=== PATIENT | male | born 1930 | race Caucasian/White ===

== ENCOUNTER → 2016-08-30 | Outpatient (CLI) | payer MEDICARE | END | disposition home or self-care (01) | LOC: MW.CHRC 15:37 | PROVIDERS: ATTEND Family Medicine | DX: E03.9 Hypothyroidism, unspecified (principal); E11.9 Type 2 diabetes mellitus without complications; I10 Essential (primary) hypertension; M15.9 Polyosteoarthritis, unspecified | CPT/HCPCS: 36415; 80053; 83036; 84439; 84443; 85025; G0463 ==

== ENCOUNTER 2017-11-21 22:21 | Emergency (ER) | payer MEDICARE ==
[2017-11-21 22:47] VITALS: BP 138/65
--- NOTE | 2017-11-22 00:11 | EDM.PDOC ---
ED HPI GENERAL MEDICAL PROBLEM - General Chief Complaint: ENT Problem Stated Complaint: TROUBLE WITH EYES Time Seen by Provider: 11/21/17 22:22 Source of Information: Reports: Patient, Family History Limitations: Reports: No Limitations - History of Present Illness INITIAL COMMENTS - FREE TEXT/NARRATIVE: HISTORY AND PHYSICAL: History of present illness: 87-year-old male presenting to the emergency department with family for chief complaint of acute right vision loss with past medical history of macular degeneration and dementia. As per son he states that his father was complaining of some blurry vision yesterday which progressed to the point where his was not able to see out of his right eye. He has been no associated pain. Does have a history of macular degeneration. Son states that the psychology clinician told him to come to the emergency department if he had any sudden vision loss and that is the primary reason why they came today. Patient denies any headache, jaw claudication, fever , scalp tenderness. I did talk to Dr. Anthony data collection interviewer psychology clinician and reviewed the patient with him. He suspected that secondary to no pain or significant pupil changes this was not a emergency situation and that they could follow-up with him on morning at [address]. I did talk to the the patient and his son about this. When I return to get intraocular pressures the patient and son had eloped. Review of systems: As per history of present illness and below otherwise all systems reviewed and negative. Past medical history: As per history of present illness and as reviewed below otherwise noncontributory. Surgical history: As per history of present illness and as reviewed below otherwise noncontributory. Social history: No reported history of drug or alcohol abuse. Family history: As per history of present illness and as reviewed below otherwise noncontributory. Physical exam: HEENT: Atraumatic, normocephalic, pupils reactive, negative for conjunctival pallor or scleral icterus, mucous membranes moist, throat clear, neck supple, nontender, trachea midline. Lungs: Clear to auscultation, breath sounds equal bilaterally, chest nontender. Heart: S1S2, regular, negative for clicks, rubs, or JVD. Abdomen: Soft, nondistended, nontender. Negative for masses or hepatosplenomegaly. Negative for costovertebral tenderness. Pelvis: Stable nontender. Genitourinary: Deferred. Rectal: Deferred. Extremities: Atraumatic, negative for cords or calf pain. Neurovascular unremarkable. Neuro: Awake, alert, oriented. Cranial nerves II through XII unremarkable. Cerebellum unremarkable. Motor and sensory unremarkable throughout. Exam nonfocal. Diagnostics: [] Therapeutics: [] Impression: Acute vision loss Plan: As above the patient eloped before I could get any further assessment. Please see H&P. Definitive disposition and diagnosis as appropriate pending reevaluation and review of above. - Related Data Allergies Allergy/AdvReac Type Severity Reaction Status Date / Time pneumococcal vaccine Allergy Other Verified 11/21/17 22:51 Home Meds: Home Meds Cholecalciferol (Vitamin D3) [Vitamin D] 2,000 units PO DAILY 03/21/16 [History] Donepezil HCl 10 mg PO BEDTIME 03/21/16 [History] Fluticasone Propionate [Flovent] 1 spray NASBOTH DAILY 03/21/16 [History] Levothyroxine Sodium [Synthroid] 175 mcg PO DAILY 03/21/16 [History] NIFEdipine [Nifedipine ER] 30 mg PO DAILY 03/21/16 [History] Sertraline HCl 100 mg PO BEDTIME 03/21/16 [History] glipiZIDE [Glipizide ER] 2.5 mg PO DAILY 03/21/16 [History] predniSONE 10 mg PO ASDIRECTED 03/21/16 [History] Acetaminophen 650 mg PO Q4HR PRN 11/21/17 [History] Acetaminophen with Codeine [Tylenol with Codeine #3 Tablet] 0 mg PO TID PRN 08/06 [History] Albuterol [Ventolin HFA] 2 puff INH Q4HR PRN 11/21/17 [History] Cholecalciferol (Vitamin D3) [Vitamin D] 2,000 unit PO DAILY 11/21/17 [History] Diphenoxylate HCl/Atropine [Lomotil] 0.025 - 2.5 mg PO TID PRN 11/21/17 [History ] Diphenoxylate HCl/Atropine [Lomotil] 1 tab PO Q6H PRN 11/21/17 [History] Ferrous Sulfate 325 mg PO TID 11/21/17 [History] Lactase 0 unit PO ASDIRECTED 11/21/17 [History] Lidocaine 4% [Xylocaine 4% Top Soln] 50 ml TOP ASDIRECTED 11/21/17 [History] Memantine [Namenda] 5 mg PO BID 11/21/17 [History] Pantoprazole Sodium [Protonix] 20 mg PO ASDIRECTED 11/21/17 [History] Vit A/Vit C/Vit E/Zinc/Copper [Preservision] 0 mg PO DAILY 11/21/17 [History] Past Medical History HEENT History: Reports: Hard of Hearing, Macular Degeneration Other HEENT History: chronic Rhinitis Cardiovascular History: Reports: Hypertension Respiratory History: Reports: COPD, Other (See Below) Other Respiratory History: Emphysema Other Gastrointestinal History: hx ulcer, abnormal weight loss, personal history of diseases of digestive system, unspecified abdominal pain, diarrhea Genitourinary History: Reports: None Other Genitourinary History: UTI Musculoskeletal History: Reports: Osteoarthritis, Other (See Below) Other Musculoskeletal History: pain to left knee Neurological History: Reports: Alzheimers Disease Other Neuro History: Amnesia, mild cognitive impairment, personal history of diseases of the nervous system and sense organs, dementia without behavioral disturbance Psychiatric History: Reports: Depression Endocrine/Metabolic History: Reports: Diabetes, Type II, Hypothyroidism, Other ( See Below) Other Endocrine/Metabolic History: Endocrine, nutritional and metabolic disease Hematologic History: Reports: Anemia Immunologic History: Reports: None Oncologic (Cancer) History: Reports: None Dermatologic History: Reports: Other (See Below) Other Dermatologic History: ganglion, right wrist - Past Surgical History Head Surgeries/Procedures: Reports: None HEENT Surgical History: Reports: Cataract Surgery Cardiovascular Surgical History: Reports: None Respiratory Surgical History: Reports: None Other GI Surgeries/Procedures: hx of surgery for ulcer, (procedure was done 50 yrs ago. son is not sure what was done) Male Surgical History: Reports: None Endocrine Surgical History: Reports: None Neurological Surgical History: Reports: None Musculoskeletal Surgical History: Reports: None Dermatological Surgical History: Reports: None Social & Family History - Family History Family Medical History: Noncontributory - Tobacco Use Smoking Status *Q: Former Smoker Used Tobacco, but Quit: Yes Month/Year Tobacco Last Used: "45years ago" - Caffeine Use Caffeine Use: Reports: None - Recreational Drug Use Recreational Drug Use: No ED ROS GENERAL - Review of Systems Review Of Systems: ROS reveals no pertinent complaints other than HPI. ED EXAM, GENERAL - Physical Exam Exam: See Below Course - Vital Signs Last Recorded V/S: Last Vital Signs Temp 97.6 F 11/21/17 22:37 Pulse 61 11/21/17 22:37 Resp 22 H 11/21/17 22:37 BP 138/65 11/21/17 22:37 Pulse Ox 96 11/21/17 22:37 Departure - Departure Time of Disposition: 00:11 Disposition: Eloped 07 Condition: Undetermined Clinical Impression: Acute loss of vision Qualifiers: Laterality: right Qualified Code(s): H53.131 - Sudden visual loss, right eye - Discharge Information Referrals: PCP,None [Primary Care Provider] -
== END 2017-11-22 00:10 | disposition left against medical advice (07) ==
LOC: MW.ED 22:21
DX: H53.131 Sudden visual loss, right eye (principal); I10 Essential (primary) hypertension; E11.9 Type 2 diabetes mellitus without complications; G30.9 Alzheimer's disease, unspecified; F02.80 Dementia in other diseases classified elsewhere, unspecified severity, without behavioral disturbance, psychotic disturbance, mood disturbance, and anxiety; J44.9 Chronic obstructive pulmonary disease, unspecified; E03.9 Hypothyroidism, unspecified; F32.9 Major depressive disorder, single episode, unspecified; D64.9 Anemia, unspecified; Z79.84 Long term (current) use of oral hypoglycemic drugs; Z87.891 Personal history of nicotine dependence; Z88.7 Allergy status to serum and vaccine; Z79.899 Other long term (current) drug therapy
CPT/HCPCS: 99283

== ENCOUNTER 2018-10-22 11:43 | Inpatient (IN) | payer MEDICARE, MEDICAID ==
[2018-10-22] MEDS ORDERED: LORazepam 2 MG/ML SDV IM ONE (11:52)
--- NOTE | 2018-10-22 12:42 | CT ---
INDICATION: Fall. Patient on blood thinners. TECHNIQUE: Head CT without contrast. COMPARISON: None FINDINGS: CSF spaces: Within normal limits for age. Brain parenchyma: There are nonspecific low attenuation white matter changes consistent with chronic microvascular disease. No sign of mass, hemorrhage, or midline shift. Skull base and calvarium: Bony thickening of the margins of the right maxillary sinus with chronic appearing mild mucosal thickening. The visualized paranasal sinuses and mastoid air cells are otherwise clear. The visualized orbits are grossly unremarkable. No skull fractures. There is intracranial atherosclerosis. IMPRESSION: 1. No acute findings. 2. Nonspecific white matter disease, typical of chronic microvascular disease. 3. Chronic sinusitis changes right maxillary sinus. Please note that all CT scans at this facility use dose modulation, iterative reconstruction, and/or weight-based dosing when appropriate to reduce radiation dose to as low as reasonably achievable. Dictated by Umang Montoya MD @ Oct 22 2018 12:39PM Signed by Dr. Umang Montoya @ Oct 22 2018 12:40PM
--- NOTE | 2018-10-22 12:44 | CT ---
INDICATION: Fall. TECHNIQUE: Multidetector imaging posture fossa to thoracic inlet. FINDINGS: Anatomic alignment. Mild degenerative disc disease C5-6 and C6-C7 as well as at C7-T1. Moderately severe facet arthrosis through the mid cervical spine more prominent on the right C3-4 through CE 5 6. No acute fracture or significant bone lesion. No neural foraminal or central canal bony encroachment of significance. IMPRESSION: No acute fracture or traumatic malalignment. Moderate degenerative joint disease and mild degenerative disc disease. Please note that all CT scans at this facility use dose modulation, iterative reconstruction, and/or weight-based dosing when appropriate to reduce radiation dose to as low as reasonably achievable. Dictated by Umang Montoya MD @ Oct 22 2018 12:40PM Signed by Dr. Umang Montoya @ Oct 22 2018 12:42PM
--- NOTE | 2018-10-22 12:48 | EDM.PDOC ---
ED HPI GENERAL MEDICAL PROBLEM - General Chief Complaint: Trauma Stated Complaint: FEVER Time Seen by Provider: 10/22/18 11:47 Source of Information: Reports: [facility] Records History Limitations: Reports: No Limitations, Other (End stage dementia) - History of Present Illness INITIAL COMMENTS - FREE TEXT/NARRATIVE: HISTORY AND PHYSICAL: History of present illness: Patient is an 88-year-old male, with history of end-stage dementia, presents to the ED today from [facility] for concern of hypoxia and fever. Per nursing staff, this morning patient was found with a recliner flipped and on the ground. The nursing staff had performed routinely vital signs and saw that patient had a fever 102. They're given him Tylenol and upon second vital check he goes oxygenation around 80% with a fever. They immediately transported him to the ER. In the ER, patient not able to answer questions or concerns due to underlying chronic dementia. Patient does take a daily aspirin. Patient denies fever, chills, chest pain, shortness of breath, or cough. Denies headache, neck stiff ness, change in vision, syncope, or near syncope. Denies nausea, vomiting, abdominal pain, diarrhea, constipation, or dysuria. Has not noted any blood in urine or stool. Patient has been eating and drinking appropriately. Review of systems: As per history of present illness and below otherwise all systems reviewed and negative. Past medical history: As per history of present illness and as reviewed below otherwise noncontributory. Surgical history: As per history of present illness and as reviewed below otherwise noncontributory. Social history: See social history for further information Family history: As per history of present illness and as reviewed below otherwise noncontributory. Physical exam: Exam is limited due to patient's underlying dementia. General: Patient is alert, and in no acute distress. Patient laying comfortably on exam table but combative with staff, noted to be combative per his baseline. HEENT: Atraumatic, normocephalic, pupils equal and reactive bilaterally, negative for conjunctival pallor or scleral icterus, mucous membranes moist, TMs normal bilaterally, throat clear, neck supple, nontender, trachea midline. No drooling or trismus noted. No meningeal signs. No hot potato voice noted. Lungs: Diffuse bilateral coarse crackles to auscultation, breath sounds equal bilaterally, chest nontender. Heart: S1S2, regular rate and rhythm without overt murmur Abdomen: Soft, nondistended, nontender. Negative for masses or hepatosplenomegaly. Negative for costovertebral tenderness. Pelvis: Stable nontender. Genitourinary: Deferred. Rectal: Deferred. Skin: Intact, warm, dry. No lesions or rashes noted. Extremities: Atraumatic, negative for cords or calf pain. Neurovascular unremarkable. No obvious deformities, step-offs, or crepitus of the complete spine. Neuro: Awake, alert. Exam nonfocal. Notes: Trauma alert was called upon arrival to the ED. Dr. Jarrell directly involved in patient care. 78% on room air. Patient not able to tolerate nasal cannula. Placed on blow-by oxygen and stating 90%. EKG does show LBB but this was also seen on EKG from 2016. Repeat EKG no change. Elevated troponin, discussed this with patient's power of finance attorney, his son, who did physically present to the ED. Son would desire admission to our hospital and not be transferred at this time. Patient is a DNR, code level 3. Dr. Kelsey was contacted on patient and will admit to observation. Diagnostics: CBC, CMP, INR, troponin, EKG, UA, chest x-ray, pelvic x-ray, head CT, cervical spine CT, BNP Therapeutics: kirill Hines Impression: Elevated troponin Hypoxia Dementia Plan: 1. Admit to observation to Dr. Kelsey Definitive disposition and diagnosis as appropriate pending reevaluation and review of above. - Related Data Allergies Allergy/AdvReac Type Severity Reaction Status Date / Time pneumococcal vaccine Allergy Other Verified 10/22/18 11:59 Home Meds: Home Meds Donepezil HCl 10 mg PO BEDTIME 03/21/16 [History] Fluticasone Propionate [Flovent] 1 spray NASBOTH DAILY 03/21/16 [History] Levothyroxine Sodium [Synthroid] 175 mcg PO DAILY 03/21/16 [History] NIFEdipine [Nifedipine ER] 30 mg PO DAILY 03/21/16 [History] Sertraline HCl 100 mg PO BEDTIME 03/21/16 [History] Acetaminophen 650 mg PO Q4HR PRN 11/21/17 [History] Acetaminophen with Codeine [Tylenol with Codeine #3 Tablet] 1 tab PO TID PRN 08/06 [History] Albuterol [Ventolin HFA] 2 puff INH Q4HR PRN 11/21/17 [History] Ferrous Sulfate 325 mg PO TID 11/21/17 [History] Lactase 0 unit PO ASDIRECTED 11/21/17 [History] Lidocaine 4% [Xylocaine 4% Top Soln] 50 ml TOP ASDIRECTED 11/21/17 [History] Memantine [Namenda] 5 mg PO BID 11/21/17 [History] Pantoprazole Sodium [Protonix] 20 mg PO ASDIRECTED 11/21/17 [History] Vit A/Vit C/Vit E/Zinc/Copper [Preservision] 2 tab PO DAILY 11/21/17 [History] Aspirin 81 mg PO DAILY 10/22/18 [History] Bisacodyl [Dulcolax] 1 supp RC Q72H PRN 10/22/18 [History] Calcium Citrate/Vitamin D3 [Calcium Cit-Vit D 315-200] 1 tab PO DAILY 10/22/18 [ History] Cholecalciferol (Vitamin D3) [Vitamin D3] 2,000 units PO DAILY 10/22/18 [History ] Insulin Aspart [NovoLOG] 0 unit SUBCUT ASDIRECTED 10/22/18 [History] Magnesium Hydroxide [Milk of Magnesia] 30 ml PO DAILY PRN 10/22/18 [History] glipiZIDE [Glipizide ER] 5 mg PO ACBREAKFAST 10/22/18 [History] predniSONE [Prednisone] 80 mg PO DAILY@14 10/22/18 [History] Past Medical History HEENT History: Reports: Hard of Hearing, Macular Degeneration Other HEENT History: chronic Rhinitis Cardiovascular History: Reports: Hypertension Respiratory History: Reports: COPD, Other (See Below) Other Respiratory History: Emphysema Gastrointestinal History: Reports: Chronic Constipation, Other (See Below) Other Gastrointestinal History: hx ulcer, abnormal weight loss, personal history of diseases of digestive system, unspecified abdominal pain, diarrhea Genitourinary History: Reports: None Other Genitourinary History: UTI Musculoskeletal History: Reports: Osteoarthritis, Other (See Below) Other Musculoskeletal History: pain to left knee Neurological History: Reports: Alzheimers Disease Other Neuro History: Amnesia, mild cognitive impairment, personal history of diseases of the nervous system and sense organs, dementia without behavioral disturbance Psychiatric History: Reports: Dementia, Depression, Other (See Below) Other Psychiatric History: behavioral disturbances Endocrine/Metabolic History: Reports: Diabetes, Type II, Hypothyroidism, Other ( See Below) Other Endocrine/Metabolic History: Endocrine, nutritional and metabolic disease Hematologic History: Reports: Anemia Immunologic History: Reports: None Oncologic (Cancer) History: Reports: None Dermatologic History: Reports: Other (See Below) Other Dermatologic History: ganglion, right wrist - Past Surgical History Head Surgeries/Procedures: Reports: None HEENT Surgical History: Reports: Cataract Surgery Cardiovascular Surgical History: Reports: None Respiratory Surgical History: Reports: None GI Surgical History: Reports: Other (See Below) Other GI Surgeries/Procedures: hx of surgery for ulcer, (procedure was done 50 yrs ago. son is not sure what was done) Male Surgical History: Reports: None Endocrine Surgical History: Reports: None Neurological Surgical History: Reports: None Musculoskeletal Surgical History: Reports: None Dermatological Surgical History: Reports: None Social & Family History - Family History Family Medical History: Noncontributory - Tobacco Use Smoking Status *Q: Unknown Ever Smoked - Caffeine Use Caffeine Use: Reports: None Review of Systems - Review of Systems Review Of Systems: ROS reveals no pertinent complaints other than HPI. ED EXAM, GENERAL - Physical Exam Exam: See Below (See dictation) Course - Vital Signs Last Recorded V/S: Last Vital Signs Temp 37.6 C 10/22/18 11:59 Pulse 85 10/22/18 11:59 Resp 16 10/22/18 11:59 BP 156/65 H 10/22/18 11:59 Pulse Ox 90 L 10/22/18 12:49 - Orders/Labs/Meds Orders: Active Orders 24 hr Category Date Time Status Admission Status [Patient Status] [ADT] Stat ADT 10/22/18 14:46 Ordered EKG Documentation Completion [RC] STAT Care 10/22/18 11:48 Active EKG Documentation Completion [RC] STAT Care 10/22/18 13:47 Active RT Aerosol Therapy [RC] ASDIRECTED Care 10/22/18 14:21 Ordered B-TYPE NATRIURETIC PEPTIDE,BNP [CHEM] Stat Lab 10/22/18 14:07 Ordered Labs: Laboratory Tests 10/22/18 10/22/18 10/22/18 Range/Units 12:08 12:45 12:45 WBC 5.80 (4.0-11.0) K/uL RBC 3.56 L (4.50-5.90) M/uL Hgb 11.1 L (13.0-17.0) g/dL Hct 33.5 L (38.0-50.0) % MCV 94.1 (80.0-98.0) fL MCH 31.2 (27.0-32.0) pg MCHC 33.1 (31.0-37.0) g/dL RDW Std Deviation 49.5 (28.0-62.0) fl RDW Coeff of Jaison 14 (11.0-15.0) % Plt Count 209 (150-400) K/uL MPV 10.30 (7.40-12.00) fL Add Manual Diff YES Neutrophils % (Manual) 75 (48.0-80.0) % Band Neutrophils % 6 % Lymphocytes % (Manual) 10 L (16.0-40.0) % Monocytes % (Manual) 9 (0.0-15.0) % Nucleated RBC % 0.0 /100WBC Absolute Seg Neuts 4.4 (1.4-5.7) Band Neutrophils # 0.3 Lymphocytes # (Manual) 0.6 (0.6-2.4) Monocytes # (Manual) 0.5 (0.0-0.8) Nucleated RBCs # 0 K/uL INR Sodium 142 (136-148) mmol/L Potassium 3.1 L (3.5-5.1) mmol/L Chloride 104 (98-107) mmol/L Carbon Dioxide 27.8 (21.0-32.0) mmol/L BUN 26 H (7.0-18.0) mg/dL Creatinine 1.1 (0.8-1.3) mg/dL Est Cr Clr Drug Dosing 55.54 mL/min Estimated GFR (MDRD) > 60.0 ml/min Glucose 97 (74-106) mg/dL Calcium 9.5 (8.5-10.1) mg/dL Total Bilirubin 1.0 (0.2-1.0) mg/dL AST 29 (15-37) IU/L ALT 20 (14-63) IU/L Alkaline Phosphatase 60 (46-116) U/L Troponin I (0.000-0.056) ng/mL Total Protein 7.1 (6.4-8.2) g/dL Albumin 3.2 L (3.4-5.0) g/dL Globulin 3.9 (2.6-4.0) g/dL Albumin/Globulin Ratio 0.8 L (0.9-1.6) Urine Color YELLOW Urine Appearance CLEAR Urine pH 7.0 (5.0-8.0) Ur Specific [place] 1.015 (1.001-1.035) Urine Protein 100 H (NEGATIVE) mg/dL Urine Glucose (UA) NEGATIVE (NEGATIVE) mg/dL Urine Ketones NEGATIVE (NEGATIVE) mg/dL Urine Occult Blood SMALL H (NEGATIVE) Urine Nitrite NEGATIVE (NEGATIVE) Urine Bilirubin NEGATIVE (NEGATIVE) Urine Urobilinogen 1.0 (<2.0) EU/dL Ur Leukocyte Esterase NEGATIVE (NEGATIVE) Urine RBC 0-2 (0-2/HPF) Urine WBC 0-2 (0-5/HPF) Ur Epithelial Cells OCCASIONAL (NONE-FEW) Amorphous Sediment LIGHT (NEGATIVE) Urine Bacteria FEW (NEGATIVE) 10/22/18 10/22/18 Range/Units 12:45 12:45 WBC (4.0-11.0) K/uL RBC (4.50-5.90) M/uL Hgb (13.0-17.0) g/dL Hct (38.0-50.0) % MCV (80.0-98.0) fL MCH (27.0-32.0) pg MCHC (31.0-37.0) g/dL RDW Std Deviation (28.0-62.0) fl RDW Coeff of Jaison (11.0-15.0) % Plt Count (150-400) K/uL MPV (7.40-12.00) fL Add Manual Diff Neutrophils % (Manual) (48.0-80.0) % Band Neutrophils % % Lymphocytes % (Manual) (16.0-40.0) % Monocytes % (Manual) (0.0-15.0) % Nucleated RBC % /100WBC Absolute Seg Neuts (1.4-5.7) Band Neutrophils # Lymphocytes # (Manual) (0.6-2.4) Monocytes # (Manual) (0.0-0.8) Nucleated RBCs # K/uL INR 0.99 Sodium (136-148) mmol/L Potassium (3.5-5.1) mmol/L Chloride (98-107) mmol/L Carbon Dioxide (21.0-32.0) mmol/L BUN (7.0-18.0) mg/dL Creatinine (0.8-1.3) mg/dL Est Cr Clr Drug Dosing mL/min Estimated GFR (MDRD) ml/min Glucose (74-106) mg/dL Calcium (8.5-10.1) mg/dL Total Bilirubin (0.2-1.0) mg/dL AST (15-37) IU/L ALT (14-63) IU/L Alkaline Phosphatase (46-116) U/L Troponin I 0.187 H* (0.000-0.056) ng/mL Total Protein (6.4-8.2) g/dL Albumin (3.4-5.0) g/dL Globulin (2.6-4.0) g/dL Albumin/Globulin Ratio (0.9-1.6) Urine Color Urine Appearance Urine pH (5.0-8.0) Ur Specific [place] (1.001-1.035) Urine Protein (NEGATIVE) mg/dL Urine Glucose (UA) (NEGATIVE) mg/dL Urine Ketones (NEGATIVE) mg/dL Urine Occult Blood (NEGATIVE) Urine Nitrite (NEGATIVE) Urine Bilirubin (NEGATIVE) Urine Urobilinogen (<2.0) EU/dL Ur Leukocyte Esterase (NEGATIVE) Urine RBC (0-2/HPF) Urine WBC (0-5/HPF) Ur Epithelial Cells (NONE-FEW) Amorphous Sediment (NEGATIVE) Urine Bacteria (NEGATIVE) Meds: Medications Discontinued Medications Generic Name Dose Route Start Last Admin Trade Name Phillipq PRN Reason Stop Dose Admin Albuterol/Ipratropium 3 ml 10/22/18 14:20 10/22/18 14:35 Duoneb 3.0-0.5 Mg/3 Ml NEB 10/22/18 14:21 3 ml ONETIME ONE Administration Lorazepam 0.5 mg 10/22/18 11:52 10/22/18 11:59 Ativan IM 10/22/18 11:53 0.5 mg ONETIME ONE Administration Departure - Departure Time of Disposition: 14:26 Disposition: Refer to Observation Clinical Impression: Elevated troponin, Hypoxia Dementia Qualifiers: Dementia type: unspecified type Dementia behavioral disturbance: with behavioral disturbance Qualified Code(s): F03.91 - Unspecified dementia with behavioral disturbance - Discharge Information Referrals: PCP,Unknown [Primary Care Provider] - - My Orders Last 24 Hours: My Active Orders 10/22/18 11:48 EKG Documentation Completion [RC] STAT 10/22/18 13:47 EKG Documentation Completion [RC] STAT 10/22/18 14:07 B-TYPE NATRIURETIC PEPTIDE,BNP [CHEM] Stat 10/22/18 14:21 RT Aerosol Therapy [RC] ASDIRECTED 10/22/18 14:46 Admission Status [Patient Status] [ADT] Stat - Assessment/Plan Last 24 Hours: My Active Orders 10/22/18 11:48 EKG Documentation Completion [RC] STAT 10/22/18 13:47 EKG Documentation Completion [RC] STAT 10/22/18 14:07 B-TYPE NATRIURETIC PEPTIDE,BNP [CHEM] Stat 10/22/18 14:21 RT Aerosol Therapy [RC] ASDIRECTED 10/22/18 14:46 Admission Status [Patient Status] [ADT] Stat
--- NOTE | 2018-10-22 12:51 | CR ---
INDICATION: Pain after fall. TECHNIQUE: One view. IMPRESSION: Moderate osteoarthritis of both hips. Mild osteoarthritis symphysis pubis and sacroiliac joints. No acute fracture or traumatic malalignment. Penile implants. Dictated by Umang Montoya MD @ Oct 22 2018 12:48PM Signed by Dr. Umang Montoya @ Oct 22 2018 12:48PM
[2018-10-22 13:21] LABS: CHLORIDE,CL 104 mmol/L (98-107); SODIUM,NA 142 mmol/L (136-148)
--- NOTE | 2018-10-22 13:40 | CR ---
INDICATION: Hypoxia TECHNIQUE: Chest 2 views COMPARISON: 04/26/2018 FINDINGS: Cardiovascular and mediastinum: Heart size and vasculature are normal in caliber and appearance. Lungs and pleural spaces: Possible right infrahilar infiltrate versus vascular crowding, however this is improved. Remainder of the lungs and pleural spaces are clear. Bones and soft tissues: No significant findings. IMPRESSION: Persistent but improved infiltrate versus normal vascular crowding in the right infrahilar region. No other finding to explain hypoxia. Dictated by Yuriy Banda MD @ Oct 22 2018 1:33PM Signed by Dr. Yuriy Banda @ Oct 22 2018 1:38PM
[2018-10-22] MEDS ORDERED: Albuterol/Ipratropium 3.0-0.5 MG/3 ML Neb Soln NEB ONE (14:20)
[2018-10-22] MEDS ORDERED: Ondansetron 4 MG/2 ML SDV IVPUSH PRN (14:51)
[2018-10-22] MEDS ORDERED: Potassium Chloride 20 MEQ Tab.ER PO ONE (14:57)
--- NOTE | 2018-10-22 14:59 | PCM.HP ---
H&P History of Present Illness - General Date of Service: 10/22/18 Admit Problem/Dx: Admission Diagnosis/Problem Admission Diagnosis/Problem Elevated troponin level - History of Present Illness Initial Comments - Free Text/Narative: 88 yo male with pmh of dementia, COPD, DM who presents to the ED from [place] following an unwitness fall. He was found sitting on the floor in his room next to his recliner, the recliner was tipped on its side. His BP was 144/82, Temp 101.2, RR18, O2 sat of 85% on room air. He was noted to have a BS of 91. CT Head,spin and pelvic x-ray were unremarkable. CXR showed possible infiltrate of right infrahilar region. Patient was combative in the ED so he was given Ativan. He currently denies any pain, or shortness of breath. - Related Data Allergies/Adverse Reactions: Allergies Allergy/AdvReac Type Severity Reaction Status Date / Time pneumococcal vaccine Allergy Other Verified 10/22/18 11:59 Home Medications: Home Meds Donepezil HCl 10 mg PO BEDTIME 03/21/16 [History] Fluticasone Propionate [Flovent] 1 spray NASBOTH DAILY 03/21/16 [History] Levothyroxine Sodium [Synthroid] 175 mcg PO DAILY 03/21/16 [History] NIFEdipine [Nifedipine ER] 30 mg PO DAILY 03/21/16 [History] Sertraline HCl 100 mg PO BEDTIME 03/21/16 [History] Acetaminophen 650 mg PO Q4HR PRN 11/21/17 [History] Acetaminophen with Codeine [Tylenol with Codeine #3 Tablet] 1 tab PO TID PRN 08/06 [History] Albuterol [Ventolin HFA] 2 puff INH Q4HR PRN 11/21/17 [History] Ferrous Sulfate 325 mg PO TID 11/21/17 [History] Lactase 0 unit PO ASDIRECTED 11/21/17 [History] Lidocaine 4% [Xylocaine 4% Top Soln] 50 ml TOP ASDIRECTED 11/21/17 [History] Memantine [Namenda] 5 mg PO BID 11/21/17 [History] Pantoprazole Sodium [Protonix] 20 mg PO ASDIRECTED 11/21/17 [History] Vit A/Vit C/Vit E/Zinc/Copper [Preservision] 2 tab PO DAILY 11/21/17 [History] Aspirin 81 mg PO DAILY 10/22/18 [History] Bisacodyl [Dulcolax] 1 supp RC Q72H PRN 10/22/18 [History] Calcium Citrate/Vitamin D3 [Calcium Cit-Vit D 315-200] 1 tab PO DAILY 10/22/18 [ History] Cholecalciferol (Vitamin D3) [Vitamin D3] 2,000 units PO DAILY 10/22/18 [History ] Insulin Aspart [NovoLOG] 0 unit SUBCUT ASDIRECTED 10/22/18 [History] Magnesium Hydroxide [Milk of Magnesia] 30 ml PO DAILY PRN 10/22/18 [History] glipiZIDE [Glipizide ER] 5 mg PO ACBREAKFAST 10/22/18 [History] predniSONE [Prednisone] 80 mg PO DAILY@14 10/22/18 [History] Past Medical History HEENT History: Reports: Hard of Hearing, Macular Degeneration Other HEENT History: chronic Rhinitis Cardiovascular History: Reports: Hypertension Respiratory History: Reports: COPD, Other (See Below) Other Respiratory History: Emphysema Gastrointestinal History: Reports: Chronic Constipation, Other (See Below) Other Gastrointestinal History: hx ulcer, abnormal weight loss, personal history of diseases of digestive system, unspecified abdominal pain, diarrhea Genitourinary History: Reports: None Other Genitourinary History: UTI Musculoskeletal History: Reports: Osteoarthritis, Other (See Below) Other Musculoskeletal History: pain to left knee Neurological History: Reports: Alzheimers Disease Other Neuro History: Amnesia, mild cognitive impairment, personal history of diseases of the nervous system and sense organs, dementia without behavioral disturbance Psychiatric History: Reports: Dementia, Depression, Other (See Below) Other Psychiatric History: behavioral disturbances Endocrine/Metabolic History: Reports: Diabetes, Type II, Hypothyroidism, Other ( See Below) Other Endocrine/Metabolic History: Endocrine, nutritional and metabolic disease Hematologic History: Reports: Anemia Immunologic History: Reports: None Oncologic (Cancer) History: Reports: None Dermatologic History: Reports: Other (See Below) Other Dermatologic History: ganglion, right wrist - Past Surgical History Head Surgeries/Procedures: Reports: None HEENT Surgical History: Reports: Cataract Surgery Cardiovascular Surgical History: Reports: None Respiratory Surgical History: Reports: None GI Surgical History: Reports: Other (See Below) Other GI Surgeries/Procedures: hx of surgery for ulcer, (procedure was done 50 yrs ago. son is not sure what was done) Male Surgical History: Reports: None Endocrine Surgical History: Reports: None Neurological Surgical History: Reports: None Musculoskeletal Surgical History: Reports: None Dermatological Surgical History: Reports: None Social & Family History - Family History Family Medical History: Noncontributory - Tobacco Use Smoking Status *Q: Unknown Ever Smoked - Caffeine Use Caffeine Use: Reports: None H&P Review of Systems - Review of Systems: Review Of Systems: ROS reveals no pertinent complaints other than HPI. Exam - Exam Exam: See Below - Vital Signs Vital Signs: Last Vital Signs Temp 37.6 C 10/22/18 11:59 Pulse 85 10/22/18 11:59 Resp 16 10/22/18 11:59 BP 156/65 H 10/22/18 11:59 Pulse Ox 90 L 10/22/18 12:49 Weight: 81.465 kg - Exam General: Lethargic. No: Mild Distress HEENT: Mucosa Moist & [place] Neck: Supple Lungs: Rhonchi, Other (wet cough) Cardiovascular: Regular Rate, Regular Rhythm GI/Abdominal Exam: Normal Bowel Sounds, Soft, Non-Tender Extremities: Non-Tender, No Pedal Edema Skin: Warm, Dry, Intact Neurological: No: Focal Deficit - Patient Data Lab Results Last 24 hrs: Laboratory Results - last 24 hr 10/22/18 10/22/18 10/22/18 Range/Units 12:08 12:45 12:45 WBC 5.80 (4.0-11.0) K/uL RBC 3.56 L (4.50-5.90) M/uL Hgb 11.1 L (13.0-17.0) g/dL Hct 33.5 L (38.0-50.0) % MCV 94.1 (80.0-98.0) fL MCH 31.2 (27.0-32.0) pg MCHC 33.1 (31.0-37.0) g/dL RDW Std Deviation 49.5 (28.0-62.0) fl RDW Coeff of Jaison 14 (11.0-15.0) % Plt Count 209 (150-400) K/uL MPV 10.30 (7.40-12.00) fL Add Manual Diff YES Neutrophils % (Manual) 75 (48.0-80.0) % Band Neutrophils % 6 % Lymphocytes % (Manual) 10 L (16.0-40.0) % Monocytes % (Manual) 9 (0.0-15.0) % Nucleated RBC % 0.0 /100WBC Absolute Seg Neuts 4.4 (1.4-5.7) Band Neutrophils # 0.3 Lymphocytes # (Manual) 0.6 (0.6-2.4) Monocytes # (Manual) 0.5 (0.0-0.8) Nucleated RBCs # 0 K/uL INR Sodium 142 (136-148) mmol/L Potassium 3.1 L (3.5-5.1) mmol/L Chloride 104 (98-107) mmol/L Carbon Dioxide 27.8 (21.0-32.0) mmol/L BUN 26 H (7.0-18.0) mg/dL Creatinine 1.1 (0.8-1.3) mg/dL Est Cr Clr Drug Dosing 55.54 mL/min Estimated GFR (MDRD) > 60.0 ml/min Glucose 97 (74-106) mg/dL Calcium 9.5 (8.5-10.1) mg/dL Total Bilirubin 1.0 (0.2-1.0) mg/dL AST 29 (15-37) IU/L ALT 20 (14-63) IU/L Alkaline Phosphatase 60 (46-116) U/L Troponin I (0.000-0.056) ng/mL Total Protein 7.1 (6.4-8.2) g/dL Albumin 3.2 L (3.4-5.0) g/dL Globulin 3.9 (2.6-4.0) g/dL Albumin/Globulin Ratio 0.8 L (0.9-1.6) Urine Color YELLOW Urine Appearance CLEAR Urine pH 7.0 (5.0-8.0) Ur Specific [place] 1.015 (1.001-1.035) Urine Protein 100 H (NEGATIVE) mg/dL Urine Glucose (UA) NEGATIVE (NEGATIVE) mg/dL Urine Ketones NEGATIVE (NEGATIVE) mg/dL Urine Occult Blood SMALL H (NEGATIVE) Urine Nitrite NEGATIVE (NEGATIVE) Urine Bilirubin NEGATIVE (NEGATIVE) Urine Urobilinogen 1.0 (<2.0) EU/dL Ur Leukocyte Esterase NEGATIVE (NEGATIVE) Urine RBC 0-2 (0-2/HPF) Urine WBC 0-2 (0-5/HPF) Ur Epithelial Cells OCCASIONAL (NONE-FEW) Amorphous Sediment LIGHT (NEGATIVE) Urine Bacteria FEW (NEGATIVE) 10/22/18 10/22/18 Range/Units 12:45 12:45 WBC (4.0-11.0) K/uL RBC (4.50-5.90) M/uL Hgb (13.0-17.0) g/dL Hct (38.0-50.0) % MCV (80.0-98.0) fL MCH (27.0-32.0) pg MCHC (31.0-37.0) g/dL RDW Std Deviation (28.0-62.0) fl RDW Coeff of Jaison (11.0-15.0) % Plt Count (150-400) K/uL MPV (7.40-12.00) fL Add Manual Diff Neutrophils % (Manual) (48.0-80.0) % Band Neutrophils % % Lymphocytes % (Manual) (16.0-40.0) % Monocytes % (Manual) (0.0-15.0) % Nucleated RBC % /100WBC Absolute Seg Neuts (1.4-5.7) Band Neutrophils # Lymphocytes # (Manual) (0.6-2.4) Monocytes # (Manual) (0.0-0.8) Nucleated RBCs # K/uL INR 0.99 Sodium (136-148) mmol/L Potassium (3.5-5.1) mmol/L Chloride (98-107) mmol/L Carbon Dioxide (21.0-32.0) mmol/L BUN (7.0-18.0) mg/dL Creatinine (0.8-1.3) mg/dL Est Cr Clr Drug Dosing mL/min Estimated GFR (MDRD) ml/min Glucose (74-106) mg/dL Calcium (8.5-10.1) mg/dL Total Bilirubin (0.2-1.0) mg/dL AST (15-37) IU/L ALT (14-63) IU/L Alkaline Phosphatase (46-116) U/L Troponin I 0.187 H* (0.000-0.056) ng/mL Total Protein (6.4-8.2) g/dL Albumin (3.4-5.0) g/dL Globulin (2.6-4.0) g/dL Albumin/Globulin Ratio (0.9-1.6) Urine Color Urine Appearance Urine pH (5.0-8.0) Ur Specific [place] (1.001-1.035) Urine Protein (NEGATIVE) mg/dL Urine Glucose (UA) (NEGATIVE) mg/dL Urine Ketones (NEGATIVE) mg/dL Urine Occult Blood (NEGATIVE) Urine Nitrite (NEGATIVE) Urine Bilirubin (NEGATIVE) Urine Urobilinogen (<2.0) EU/dL Ur Leukocyte Esterase (NEGATIVE) Urine RBC (0-2/HPF) Urine WBC (0-5/HPF) Ur Epithelial Cells (NONE-FEW) Amorphous Sediment (NEGATIVE) Urine Bacteria (NEGATIVE) Result Diagrams: 10/23/18 03:00 10/23/18 03:00 Problem List Initiated/Reviewed/Updated: Yes Orders Last 24hrs: Active Orders 24 hr Category Date Time Status Admission Status [Patient Status] [ADT] Stat ADT 10/22/18 14:46 Active Antiembolic Devices [RC] PER UNIT ROUTINE Care 10/22/18 14:52 Ordered EKG Documentation Completion [RC] STAT Care 10/22/18 11:48 Active EKG Documentation Completion [RC] STAT Care 10/22/18 13:47 Active Oxygen Therapy [RC] PRN Care 10/22/18 14:51 Ordered RT Aerosol Therapy [RC] ASDIRECTED Care 10/22/18 14:21 Active VTE/DVT Education [RC] PER UNIT ROUTINE Care 10/22/18 14:51 Ordered Vital Signs [RC] Q4H Care 10/22/18 14:51 Ordered [place] [employer] Diet [DIET] Diet 10/22/18 Breakfast Ordered B-TYPE NATRIURETIC PEPTIDE,BNP [CHEM] Stat Lab 10/22/18 14:07 Ordered BASIC METABOLIC PANEL,BMP [CHEM] AM Lab 10/23/18 05:11 Ordered CBC WITH AUTO DIFF [HEME] AM Lab 10/23/18 05:11 Ordered CULTURE BLOOD [BC] Stat Lab 10/22/18 14:47 Ordered CULTURE BLOOD [BC] Stat Lab 10/22/18 14:47 Ordered TROPONIN I [CHEM] Q6H Lab 10/22/18 19:00 Ordered TROPONIN I [CHEM] Q6H Lab 10/23/18 01:00 Ordered Aspirin Med 10/22/18 15:00 Ordered 325 mg PO DAILY Donepezil [Aricept] Med 10/22/18 21:00 Ordered 10 mg PO BEDTIME Heparin Sodium Med 10/22/18 15:00 Ordered 5,000 units SUBCUT Q12H Levofloxacin/Dextrose 5%-Water [Levaquin in D5W 750 MG/ Med 10/22/18 15:00 Ordered 150 ML] 750 mg Premix Bag 1 bag IV Q24H Levothyroxine Sodium Med 10/23/18 09:00 Ordered 175 mcg PO DAILY Memantine [Namenda] Med 10/22/18 21:00 Ordered 5 mg PO BID Ondansetron [Zofran] Med 10/22/18 14:51 Ordered 4 mg IVPUSH Q4H PRN Pantoprazole Sodium [Protonix] Med 10/22/18 15:00 Ordered 20 mg PO ASDIRECTED predniSONE Med 10/23/18 14:00 Ordered 80 mg PO DAILY@14 Blood Culture x2 Reflex Set [OM.PC] Stat Oth 10/22/18 14:47 Ordered Sequential Compression Device [OM.PC] Per Unit Routine Oth 10/22/18 14:51 Ordered Resuscitation Status Routine Resus Stat 10/22/18 14:51 Ordered Medication Orders Aspirin (Aspirin) 325 mg PO DAILY NUPUR Donepezil HCl (Aricept) 10 mg PO BEDTIME NUPUR Heparin Sodium (Porcine) (Heparin Sodium) 5,000 units SUBCUT Q12H NUPUR Levofloxacin/Dextrose 750 mg/ (Premix) 150 mls @ 100 mls/hr IV Q24H NUPUR Memantine (Namenda) 5 mg PO BID [facility] Non-Formulary Medication (Levothyroxine Sodium) 175 mcg PO DAILY [facility] Non-Formulary Medication (Pantoprazole Sodium [Protonix]) 20 mg PO ASDIRECTED NUPUR Ondansetron HCl (Zofran) 4 mg IVPUSH Q4H PRN PRN Reason: Nausea Prednisone (Prednisone) 80 mg PO DAILY@14 [facility] Assessment/Plan Comment:: 88 yo male admitted following fall. We will admit for suspect pneumonia and troponin leak. Pneumonia: patient has fever, cough and CXR findings consistent of possible pneumonia. We will treat with Levaquin, He is blow by oxygen as he will not keep NC on. Elevated troponin: will continue to trend Dementia/delirium: patient received Ativan in the ED.
[2018-10-22] MEDS ORDERED: Non-Formulary Medication 1 Each (Pantoprazole Sodium [Protonix] 20 MG) PO SCH (15:00)
[2018-10-22] MEDS ORDERED: Sodium Chloride 0.9% with KCl 1,000 ML IV SCH (15:00)
[2018-10-22] MEDS: Heparin Sodium 5,000 Units/ML Vial SUBCUT SCH (17:00)
[2018-10-22] MEDS: Levofloxacin/Dextrose 5%-Water 750 MG in Premix Bag 1 BAG IV SCH (17:00)
[2018-10-22] MEDS: Aspirin 325 MG Tab PO SCH (17:01)
[2018-10-22] MEDS: Insulin Aspart 100 Units/ML 3 ML Pen SUBCUT SCH (17:18)
[2018-10-22] MEDS ORDERED: Furosemide 20 MG/2 ML VIAL IVPUSH ONE (17:53)
[2018-10-22] MEDS ORDERED: Potassium Chloride Riders 20 MEQ in Premix Bag 1 BAG IV ONE (17:54)
[2018-10-22] MEDS ORDERED: LORazepam 2 MG/ML SDV IVPUSH ONE (17:55)
[2018-10-22] MEDS ORDERED: Pantoprazole 40 MG in Sodium Chloride 0.9% 100 ML IVPUSH SCH (18:00)
[2018-10-22] MEDS ORDERED: Pantoprazole 40 MG Vial ONE (20:15)
[2018-10-22] MEDS: Memantine 10 MG Tab PO SCH (20:43)
[2018-10-22] MEDS: Donepezil 5 MG Tab PO SCH (20:43)
[2018-10-22] MEDS: methylPREDNISolone Sodium Succinate 40 MG/1 ML SDV IVPUSH SCH (21:08)
[2018-10-23] MEDS ORDERED: Acetaminophen 650 MG Supp RECTAL PRN (01:05)
[2018-10-23] MEDS: Heparin Sodium 5,000 Units/ML Vial SUBCUT SCH ×2 (03:19→16:45)
[2018-10-23] MEDS: methylPREDNISolone Sodium Succinate 40 MG/1 ML SDV IVPUSH SCH ×2 (08:26→20:38)
[2018-10-23] MEDS: Insulin Aspart 100 Units/ML 3 ML Pen SUBCUT SCH ×3 (08:43→18:21)
[2018-10-23] MEDS: Aspirin 325 MG Tab PO SCH (08:48)
[2018-10-23] MEDS: Memantine 10 MG Tab PO SCH ×2 (08:49→20:26)
[2018-10-23] MEDS ORDERED: LEVOTHYROXINE SODIUM 175 MCG PO SCH (09:00)
[2018-10-23] MEDS ORDERED: predniSONE 20 MG Tab PO SCH (14:00)
[2018-10-23] MEDS: Levofloxacin/Dextrose 5%-Water 750 MG in Premix Bag 1 BAG IV SCH (16:47)
[2018-10-23] MEDS ORDERED: Vancomycin 2 GM in Sodium Chloride 0.9% 500 ML IV SCH (17:00)
[2018-10-23] MEDS: Pantoprazole 40 MG Vial IVPUSH SCH (18:11)
[2018-10-23] MEDS ORDERED: Furosemide 40 MG/4 ML VIAL IVPUSH ONE (19:49)
--- NOTE | 2018-10-23 20:06 | PCM.PN ---
- General Info Date of Service: 10/23/18 Subjective Update: Overnight patient was restless and attempting to get off bed. This morning, patient was sleeping and was arousable but not oriented. Denied pain. - Patient Data Vitals - Most Recent: Last Vital Signs Temp 37.2 C 10/23/18 17:00 Pulse 66 10/23/18 07:00 Resp 40 H 10/23/18 18:00 BP 180/97 H 10/23/18 18:00 Pulse Ox 91 L 10/23/18 18:00 Weight - Most Recent: 163.3 kg I&O - Last 24 Hours: Intake & Output 10/23/18 10/23/18 10/23/18 06:59 14:59 22:59 Intake Total 240 Output Total 500 470 Balance -500 -230 Lab Results Last 24 Hours: Laboratory Results - last 24 hr 10/22/18 10/22/18 10/23/18 Range/Units 12:45 21:02 00:42 WBC (4.0-11.0) K/uL RBC (4.50-5.90) M/uL Hgb (13.0-17.0) g/dL Hct (38.0-50.0) % MCV (80.0-98.0) fL MCH (27.0-32.0) pg MCHC (31.0-37.0) g/dL RDW Std Deviation (28.0-62.0) fl RDW Coeff of Jaison (11.0-15.0) % Plt Count (150-400) K/uL MPV (7.40-12.00) fL Add Manual Diff Neutrophils % (Manual) (48.0-80.0) % Band Neutrophils % % Lymphocytes % (Manual) (16.0-40.0) % Monocytes % (Manual) (0.0-15.0) % Nucleated RBC % /100WBC Absolute Seg Neuts (1.4-5.7) Band Neutrophils # Lymphocytes # (Manual) (0.6-2.4) Monocytes # (Manual) (0.0-0.8) Nucleated RBCs # K/uL Sodium (136-148) mmol/L Potassium (3.5-5.1) mmol/L Chloride (98-107) mmol/L Carbon Dioxide (21.0-32.0) mmol/L BUN (7.0-18.0) mg/dL Creatinine (0.8-1.3) mg/dL Est Cr Clr Drug Dosing mL/min Estimated GFR (MDRD) ml/min Glucose (74-106) mg/dL POC Glucose 158 H (60-110) mg/dL Calcium (8.5-10.1) mg/dL Troponin I Cancelled 0.153 H* 10/23/18 10/23/18 10/23/18 Range/Units 03:00 03:00 03:00 WBC 4.54 (4.0-11.0) K/uL RBC 3.72 L (4.50-5.90) M/uL Hgb 11.6 L (13.0-17.0) g/dL Hct 35.2 L (38.0-50.0) % MCV 94.6 (80.0-98.0) fL MCH 31.2 (27.0-32.0) pg MCHC 33.0 (31.0-37.0) g/dL RDW Std Deviation 49.5 (28.0-62.0) fl RDW Coeff of Jaison 14 (11.0-15.0) % Plt Count 176 (150-400) K/uL MPV 9.50 (7.40-12.00) fL Add Manual Diff YES Neutrophils % (Manual) 82 H (48.0-80.0) % Band Neutrophils % 10 % Lymphocytes % (Manual) 5 L (16.0-40.0) % Monocytes % (Manual) 3 (0.0-15.0) % Nucleated RBC % 0.0 /100WBC Absolute Seg Neuts 3.7 (1.4-5.7) Band Neutrophils # 0.5 Lymphocytes # (Manual) 0.2 L (0.6-2.4) Monocytes # (Manual) 0.1 (0.0-0.8) Nucleated RBCs # 0 K/uL Sodium 145 (136-148) mmol/L Potassium 3.6 (3.5-5.1) mmol/L Chloride 105 (98-107) mmol/L Carbon Dioxide 27.8 (21.0-32.0) mmol/L BUN 24 H (7.0-18.0) mg/dL Creatinine 1.2 (0.8-1.3) mg/dL Est Cr Clr Drug Dosing 47.63 mL/min Estimated GFR (MDRD) 57.4 ml/min Glucose 136 H (74-106) mg/dL POC Glucose (60-110) mg/dL Calcium 9.3 (8.5-10.1) mg/dL Troponin I 0.135 H* 10/23/18 10/23/18 10/23/18 Range/Units 08:42 11:52 18:19 WBC (4.0-11.0) K/uL RBC (4.50-5.90) M/uL Hgb (13.0-17.0) g/dL Hct (38.0-50.0) % MCV (80.0-98.0) fL MCH (27.0-32.0) pg MCHC (31.0-37.0) g/dL RDW Std Deviation (28.0-62.0) fl RDW Coeff of Jaison (11.0-15.0) % Plt Count (150-400) K/uL MPV (7.40-12.00) fL Add Manual Diff Neutrophils % (Manual) (48.0-80.0) % Band Neutrophils % % Lymphocytes % (Manual) (16.0-40.0) % Monocytes % (Manual) (0.0-15.0) % Nucleated RBC % /100WBC Absolute Seg Neuts (1.4-5.7) Band Neutrophils # Lymphocytes # (Manual) (0.6-2.4) Monocytes # (Manual) (0.0-0.8) Nucleated RBCs # K/uL Sodium (136-148) mmol/L Potassium (3.5-5.1) mmol/L Chloride (98-107) mmol/L Carbon Dioxide (21.0-32.0) mmol/L BUN (7.0-18.0) mg/dL Creatinine (0.8-1.3) mg/dL Est Cr Clr Drug Dosing mL/min Estimated GFR (MDRD) ml/min Glucose (74-106) mg/dL POC Glucose 92 136 H 169 H (60-110) mg/dL Calcium (8.5-10.1) mg/dL Troponin I Manuel Results Last 24 Hours: Microbiology 10/23/18 16:05 Anaerobic Blood Culture - Final Blood - Venous 10/22/18 15:25 Aerobic Blood Culture - Preliminary Blood - Venous - Lab Draw NO GROWTH AFTER 1 DAY Anaerobic Blood Culture - Preliminary NO GROWTH AFTER 1 DAY 10/22/18 15:15 Aerobic Blood Culture - Preliminary Blood - Venous Anaerobic Blood Culture - Preliminary NO GROWTH AFTER 1 DAY Med Orders - Current: Current Medications Acetaminophen (Tylenol) 650 mg RECTAL Q6H PRN PRN Reason: Fever Albuterol/Ipratropium (Duoneb 3.0-0.5 Mg/3 Ml) 3 ml NEB Q4HRRT PRN PRN Reason: Wheezing Aspirin (Aspirin) 325 mg PO DAILY [facility] Last Admin: 10/23/18 08:48 Dose: Not Given Donepezil HCl (Aricept) 10 mg PO BEDTIME [facility] Last Admin: 10/22/18 20:43 Dose: Not Given Heparin Sodium (Porcine) (Heparin Sodium) 5,000 units SUBCUT Q12H [facility] Last Admin: 10/23/18 16:45 Dose: Not Given Levofloxacin/Dextrose 750 mg/ (Premix) 150 mls @ 100 mls/hr IV Q24H [facility] Last Admin: 10/23/18 16:47 Dose: 100 mls/hr Vancomycin HCl 2 gm/ Sodium (Chloride) 500 mls @ 250 mls/hr IV Q18H [facility] Last Admin: 10/23/18 18:11 Dose: 250 mls/hr Insulin Aspart (Novolog) 0 unit SUBCUT TIDAC [facility]; Protocol Last Admin: 10/23/18 18:21 Dose: Not Given Memantine (Namenda) 5 mg PO BID [facility] Last Admin: 10/23/18 08:49 Dose: Not Given Methylprednisolone Sodium Succinate (Solu-Medrol) 40 mg IVPUSH BID [facility] Last Admin: 10/23/18 08:26 Dose: 40 mg Non-Formulary Medication (Levothyroxine Sodium) 175 mcg PO DAILY [facility] Last Admin: 10/23/18 08:49 Dose: Not Given Ondansetron HCl (Zofran) 4 mg IVPUSH Q4H PRN PRN Reason: Nausea Pantoprazole Sodium (Protonix Iv) 40 mg IVPUSH Q24H [facility] Last Admin: 10/23/18 18:11 Dose: 40 mg Vancomycin HCl (Pharmacy To Dose - Vancomycin) 1 dose .XX ASDIRECTED [facility] Discontinued Medications Albuterol/Ipratropium (Duoneb 3.0-0.5 Mg/3 Ml) 3 ml NEB ONETIME ONE Stop: 10/22/18 14:21 Last Admin: 10/22/18 14:35 Dose: 3 ml Furosemide (Lasix) 20 mg IVPUSH NOW ONE Stop: 10/22/18 17:54 Last Admin: 10/22/18 18:09 Dose: 20 mg Furosemide (Lasix) 40 mg IVPUSH NOW ONE Stop: 10/23/18 19:50 Potassium Chloride/Sodium Chloride (Normal Saline With 40 Meq Kcl) 1,000 mls @ 125 mls/hr IV ASDIRECTED [facility] Stop: 10/22/18 22:59 Potassium Chloride 20 meq/ (Premix) 50 mls @ 25 mls/hr IV ONETIME ONE Stop: 10/22/18 19:53 Last Admin: 10/22/18 21:05 Dose: 25 mls/hr Pantoprazole Sodium 40 mg/ (Sodium Chloride) 100 mls @ 10 mls/hr IVPUSH Q24H [facility] Last Admin: 10/22/18 20:19 Dose: 10 mls/hr Lorazepam (Ativan) 0.5 mg IM ONETIME ONE Stop: 10/22/18 11:53 Last Admin: 10/22/18 11:59 Dose: 0.5 mg Lorazepam (Ativan) 1 mg IVPUSH ONETIME ONE Stop: 10/22/18 17:56 Last Admin: 10/22/18 18:09 Dose: 1 mg Non-Formulary Medication (Pantoprazole Sodium [Protonix]) 20 mg PO ASDIRECTED [facility] Pantoprazole Sodium (Protonix Iv) Confirm Administered Dose 40 mg .ROUTE .STK -MED ONE Stop: 10/22/18 20:16 Last Admin: 10/22/18 20:19 Dose: Not Given Potassium Chloride (Klor-Con M20) 40 meq PO ONETIME ONE Stop: 10/22/18 14:58 Last Admin: 10/22/18 20:09 Dose: Not Given Prednisone (Prednisone) 80 mg PO DAILY@14 NUPUR - Exam General: Alert Lungs: Rhonchi. No: Wheezing Cardiovascular: Tachycardia GI/Abdominal Exam: Normal Bowel Sounds, Soft, Non-Tender Extremities: Normal Inspection, No Pedal Edema Skin: Warm, Dry - Problem List Review Problem List Initiated/Reviewed/Updated: Yes - My Orders Last 24 Hours: My Active Orders 10/23/18 10:40 Blood Glucose Check, Bedside [] WITHMEALSANDBED 10/23/18 12:09 Echo Comp wo Cont [US] Routine - Plan Plan:: A: 1. Healthcare associated pneumonia 2. acute respiratory failure due to above 3. Delirium with underlying dementia 4. Elevated troponin trending down P: 1. HCAP- treating for suspected pneumonia with levaquin and vancomycin. 2. Acute respiratory failure due to underlying pneumonia. On NC but patient taking off NC at times. 3. Elevated troponin, trending down. Ordered Echo. 4. Delirium with underlying dementia. Will try to reorient patient and open blinds during day. Added Haldol PRN for restlessness, agitation. Dispo: pending improvement in respiratory status
[2018-10-23] MEDS: Donepezil 5 MG Tab PO SCH (20:26)
[2018-10-23] MEDS ORDERED: Metoprolol Tartrate 5 MG/5 ML SDV IVPUSH ONE (20:29)
[2018-10-23] MEDS ORDERED: Furosemide 20 MG/2 ML VIAL IVPUSH ONE ×2 (20:30→22:30)
--- NOTE | 2018-10-23 21:05 | CR ---
INDICATION: hypoxia, aspiration, pneumonia TECHNIQUE: Chest 1 view. COMPARISON: 10/22/18 FINDINGS: Cardiovascular and mediastinum: Heart size and vasculature are normal in caliber and appearance. Mediastinum is within normal limits. Lungs and pleural space: Lungs are clear. No sign of infiltrate or mass. No sign of pleural effusion. No pneumothorax. Bones and soft tissues: No significant findings. IMPRESSION: Unremarkable chest. Dictated by: Josemanuel Sandra MD @ 10/23/2018 21:04:39 (Electronically Signed)
[2018-10-23] MEDS: Furosemide 20 MG/2 ML VIAL ONE ×2 (22:40→22:41)
[2018-10-23] MEDS: LORazepam 2 MG/ML SDV IVPUSH PRN (23:07)
[2018-10-24] MEDS: Heparin Sodium 5,000 Units/ML Vial SUBCUT SCH ×2 (03:33→15:14)
[2018-10-24] MEDS: Albuterol/Ipratropium 3.0-0.5 MG/3 ML Neb Soln NEB PRN ×2 (08:33→23:14)
[2018-10-24] MEDS: LORazepam 2 MG/ML SDV IVPUSH PRN (08:54)
[2018-10-24] MEDS: methylPREDNISolone Sodium Succinate 40 MG/1 ML SDV IVPUSH SCH ×2 (09:13→22:51)
[2018-10-24] MEDS: Insulin Aspart 100 Units/ML 3 ML Pen SUBCUT SCH ×3 (09:28→19:43)
[2018-10-24] MEDS: Morphine 2 MG/ML Syringe IVPUSH PRN ×5 (10:26→22:50)
[2018-10-24] MEDS: Aspirin 325 MG Tab PO SCH (10:34)
[2018-10-24] MEDS: Memantine 10 MG Tab PO SCH ×2 (10:34→20:32)
--- NOTE | 2018-10-24 14:36 | PCM.PN ---
- General Info Date of Service: 10/24/18 Subjective Update: Last night, patient went into respiratory distress, requiring 10 L O2 NC. He was diuresed with a total of 80 mg IV of lasix with minimal urine output. This morning, patient continues to be tachypneic, requiring 10 L NC. O2 sats in 90's. - Patient Data Vitals - Most Recent: Last Vital Signs Temp 37 C 10/24/18 14:00 Pulse 113 H 10/24/18 12:00 Resp 41 H 10/24/18 14:00 BP 142/83 H 10/24/18 14:00 Pulse Ox 99 10/24/18 14:00 Weight - Most Recent: 74.571 kg I&O - Last 24 Hours: Intake & Output 10/23/18 10/24/18 10/24/18 22:59 06:59 14:59 Intake Total 840 Output Total 720 850 Balance 120 -850 Lab Results Last 24 Hours: Laboratory Results - last 24 hr 10/23/18 10/23/18 10/23/18 Range/Units 18:19 20:35 21:09 ABG pH 7.383 (7.35-7.45) ABG pCO2 41 (35-45) mmHG ABG pO2 71 L (75-100) mmHG ABG HCO3 24 (22-26) mEq/L ABG Total CO2 21.9 ABG Base Excess -0.9 (-2.0-2.0) Sodium (136-148) mmol/L Potassium (3.5-5.1) mmol/L Chloride (98-107) mmol/L Carbon Dioxide (21.0-32.0) mmol/L BUN (7.0-18.0) mg/dL Creatinine (0.8-1.3) mg/dL Est Cr Clr Drug Dosing mL/min Estimated GFR (MDRD) ml/min Glucose (74-106) mg/dL POC Glucose 169 H 224 H (60-110) mg/dL Calcium (8.5-10.1) mg/dL 10/24/18 10/24/18 10/24/18 Range/Units 04:55 08:22 12:33 ABG pH (7.35-7.45) ABG pCO2 (35-45) mmHG ABG pO2 (75-100) mmHG ABG HCO3 (22-26) mEq/L ABG Total CO2 ABG Base Excess (-2.0-2.0) Sodium 146 (136-148) mmol/L Potassium 3.7 (3.5-5.1) mmol/L Chloride 105 (98-107) mmol/L Carbon Dioxide 24.1 (21.0-32.0) mmol/L BUN 51 H (7.0-18.0) mg/dL Creatinine 2.0 H (0.8-1.3) mg/dL Est Cr Clr Drug Dosing 27.96 mL/min Estimated GFR (MDRD) 31.8 ml/min Glucose 231 H (74-106) mg/dL POC Glucose 194 H 185 H (60-110) mg/dL Calcium 9.7 (8.5-10.1) mg/dL Manuel Results Last 24 Hours: Microbiology 10/22/18 15:15 Aerobic Blood Culture - Preliminary Blood - Venous Anaerobic Blood Culture - Preliminary NO GROWTH AFTER 1 DAY 10/23/18 22:33 Anaerobic Blood Culture - Final Blood - Venous - Lab Draw 10/23/18 16:05 Anaerobic Blood Culture - Final Blood - Venous 10/22/18 15:25 Aerobic Blood Culture - Preliminary Blood - Venous - Lab Draw NO GROWTH AFTER 1 DAY Anaerobic Blood Culture - Preliminary NO GROWTH AFTER 1 DAY Med Orders - Current: Current Medications Acetaminophen (Tylenol) 650 mg RECTAL Q6H PRN PRN Reason: Fever Albuterol/Ipratropium (Duoneb 3.0-0.5 Mg/3 Ml) 3 ml NEB Q4HRRT PRN PRN Reason: Wheezing Last Admin: 10/24/18 08:33 Dose: 3 ml Aspirin (Aspirin) 325 mg PO DAILY [facility] Last Admin: 10/24/18 10:34 Dose: Not Given Donepezil HCl (Aricept) 10 mg PO BEDTIME [facility] Last Admin: 10/23/18 20:26 Dose: Not Given Heparin Sodium (Porcine) (Heparin Sodium) 5,000 units SUBCUT Q12H [facility] Last Admin: 10/24/18 03:33 Dose: 5,000 units Levofloxacin/Dextrose 750 mg/ (Premix) 150 mls @ 100 mls/hr IV Q48H [facility] Vancomycin HCl 1.25 gm/ Sodium (Chloride) 500 mls @ 333.333 mls/hr IV Q24H [facility] Insulin Aspart (Novolog) 0 unit SUBCUT TIDAC [facility]; Protocol Last Admin: 10/24/18 12:38 Dose: 1 unit Levothyroxine Sodium 75 mcg/ (Levothyroxine Sodium 100 mcg) 175 mcg PO ACBREAKFAST [facility] Last Admin: 10/24/18 10:34 Dose: Not Given Lorazepam (Ativan) 0.5 mg IVPUSH Q6H PRN PRN Reason: Anxiety Last Admin: 10/24/18 08:54 Dose: 0.5 mg Memantine (Namenda) 5 mg PO BID [facility] Last Admin: 10/24/18 10:34 Dose: Not Given Methylprednisolone Sodium Succinate (Solu-Medrol) 40 mg IVPUSH BID [facility] Last Admin: 10/24/18 09:13 Dose: 40 mg Morphine Sulfate (Morphine) 2 mg IVPUSH Q2H PRN PRN Reason: SOB/pain Last Admin: 10/24/18 10:26 Dose: 2 mg Ondansetron HCl (Zofran) 4 mg IVPUSH Q4H PRN PRN Reason: Nausea Pantoprazole Sodium (Protonix Iv) 40 mg IVPUSH Q24H [facility] Last Admin: 10/23/18 18:11 Dose: 40 mg Vancomycin HCl (Pharmacy To Dose - Vancomycin) 1 dose .XX ASDIRECTED [facility] Discontinued Medications Albuterol/Ipratropium (Duoneb 3.0-0.5 Mg/3 Ml) 3 ml NEB ONETIME ONE Stop: 10/22/18 14:21 Last Admin: 10/22/18 14:35 Dose: 3 ml Furosemide (Lasix) 20 mg IVPUSH NOW ONE Stop: 10/22/18 17:54 Last Admin: 10/22/18 18:09 Dose: 20 mg Furosemide (Lasix) 40 mg IVPUSH NOW ONE Stop: 10/23/18 19:50 Last Admin: 10/23/18 20:25 Dose: 40 mg Furosemide (Lasix) 20 mg IVPUSH ONETIME ONE Stop: 10/23/18 20:31 Last Admin: 10/23/18 20:30 Dose: 20 mg Furosemide (Lasix) 20 mg IVPUSH ONETIME ONE Stop: 10/23/18 22:31 Last Admin: 10/23/18 22:38 Dose: 20 mg Furosemide (Lasix) Confirm Administered Dose 20 mg .ROUTE .STK-MED ONE Stop: 10/23/18 22:36 Last Admin: 10/23/18 22:41 Dose: 20 mg Levofloxacin/Dextrose 750 mg/ (Premix) 150 mls @ 100 mls/hr IV Q24H [facility] Last Admin: 10/23/18 16:47 Dose: 100 mls/hr Potassium Chloride/Sodium Chloride (Normal Saline With 40 Meq Kcl) 1,000 mls @ 125 mls/hr IV ASDIRECTED [facility] Stop: 10/22/18 22:59 Potassium Chloride 20 meq/ (Premix) 50 mls @ 25 mls/hr IV ONETIME ONE Stop: 10/22/18 19:53 Last Admin: 10/22/18 21:05 Dose: 25 mls/hr Pantoprazole Sodium 40 mg/ (Sodium Chloride) 100 mls @ 10 mls/hr IVPUSH Q24H [facility] Last Admin: 10/22/18 20:19 Dose: 10 mls/hr Vancomycin HCl 2 gm/ Sodium (Chloride) 500 mls @ 250 mls/hr IV Q18H [facility] Last Admin: 10/23/18 18:11 Dose: 250 mls/hr Lorazepam (Ativan) 0.5 mg IM ONETIME ONE Stop: 10/22/18 11:53 Last Admin: 10/22/18 11:59 Dose: 0.5 mg Lorazepam (Ativan) 1 mg IVPUSH ONETIME ONE Stop: 10/22/18 17:56 Last Admin: 10/22/18 18:09 Dose: 1 mg Metoprolol Tartrate (Lopressor) 5 mg IVPUSH ONETIME ONE Stop: 10/23/18 20:30 Last Admin: 10/23/18 20:30 Dose: 5 mg Non-Formulary Medication (Levothyroxine Sodium) 175 mcg PO DAILY [facility] Last Admin: 10/23/18 08:49 Dose: Not Given Non-Formulary Medication (Pantoprazole Sodium [Protonix]) 20 mg PO ASDIRECTED [facility] Pantoprazole Sodium (Protonix Iv) Confirm Administered Dose 40 mg .ROUTE .STK -MED ONE Stop: 10/22/18 20:16 Last Admin: 10/22/18 20:19 Dose: Not Given Potassium Chloride (Klor-Con M20) 40 meq PO ONETIME ONE Stop: 10/22/18 14:58 Last Admin: 10/22/18 20:09 Dose: Not Given Prednisone (Prednisone) 80 mg PO DAILY@14 [facility] - Exam Quality Assessment: Supplemental Oxygen General: Other (arousable, hard of hearing) Lungs: Other (tachypneic with coarse lung sounds bilaterally) Cardiovascular: Tachycardia GI/Abdominal Exam: Soft, Non-Tender, No Distention Extremities: No Pedal Edema Skin: Warm, Moist - Problem List Review Problem List Initiated/Reviewed/Updated: Yes - My Orders Last 24 Hours: My Active Orders 10/24/18 Dinner Mechanical Soft Diet [DIET] - Plan Plan:: A: 1. Sepsis 2/2 HCAP and gram positive bacteremia 2. Acute hypoxic respiratory failure due to above 3. Acute kidney injury 4. Metabolic encephalopathy due to above 5. Elevated troponin, stable P: 1. Sepsis 2/2 HCAP, gram positive bacteremia: Continue current antibiotics which include Levaquin and Vancomycin. Pending repeat blood culture results. 2. Acute hypoxic respiratory failure: continue with 10 L NC and can escalate to BiPAP if he requires more oxygenation. 3. Acute kidney injury: Will hold off on lasix, encourage PO intake. Recheck tomorrow. 4. Elevated troponin, stable: continue Aspirin. 5. Aspiration: placed speech evaluation due to aspiration. Mechanical soft diet. Aspiration precautions. I spoke with family this morning to update them about Mr. Gonzalez's medical status. Informed them that the patient was more tachypneic, requiring 10 L O2 NC and kidney function was worsening and that his status was deteriorating. Family decided to keep Mr. Gonzalez comfortable to control his tachypnea and continue with NC and if needed, BiPAP. They declined intubation since patient's wishes were to be DNR/DNI. In addition, they do not want any more diagnostic procedures like CTs, U/S.
[2018-10-24] MEDS ORDERED: Glycerin Pediatric 1.2 GM Supp RECTAL PRN (17:15)
[2018-10-24] MEDS ORDERED: Vancomycin 1.25 GM in Sodium Chloride 0.9% 500 ML IV SCH (18:00)
[2018-10-24] MEDS: Pantoprazole 40 MG Vial IVPUSH SCH (18:21)
[2018-10-24] MEDS: Donepezil 5 MG Tab PO SCH (20:32)
[2018-10-25] MEDS: Morphine 2 MG/ML Syringe IVPUSH PRN (01:00)
[2018-10-25] MEDS: Heparin Sodium 5,000 Units/ML Vial SUBCUT SCH (03:29)
[2018-10-25] MEDS: Insulin Aspart 100 Units/ML 3 ML Pen SUBCUT SCH (07:28)
[2018-10-25] MEDS: Aspirin 325 MG Tab PO SCH (08:33)
[2018-10-25] MEDS: Memantine 10 MG Tab PO SCH (08:34)
[2018-10-25] MEDS: methylPREDNISolone Sodium Succinate 40 MG/1 ML SDV IVPUSH SCH (08:43)
[2018-10-25] MEDS ORDERED: Potassium Chloride 40 MEQ in Dextrose 5% in Water 1,000 ML IV SCH ×2 (09:00)
[2018-10-25] MEDS ORDERED: Atropine 1% Ophth Soln 5 ML BOTTLE SL SCH (11:30)
[2018-10-25] MEDS ORDERED: Atropine 1% Ophth Soln 5 ML BOTTLE SL PRN (11:35)
--- NOTE | 2018-10-25 12:11 | PCM.PN ---
- General Info Date of Service: 10/25/18 Subjective Update: No acute events overnight. Patient breathing room air with O2 sats in low 90's. Arousable, however, not oriented. - Patient Data Vitals - Most Recent: Last Vital Signs Temp 37.2 C 10/25/18 10:00 Pulse 104 H 10/25/18 10:00 Resp 30 H 10/25/18 08:00 BP 154/97 H 10/25/18 08:00 Pulse Ox 94 L 10/25/18 08:00 Weight - Most Recent: 74.571 kg I&O - Last 24 Hours: Intake & Output 10/24/18 10/25/18 10/25/18 22:59 06:59 14:59 Intake Total 710 50 Output Total 450 500 Balance 260 -450 Lab Results Last 24 Hours: Laboratory Results - last 24 hr 10/24/18 10/24/18 10/25/18 Range/Units 12:33 19:36 07:22 WBC (4.0-11.0) K/uL RBC (4.50-5.90) M/uL Hgb (13.0-17.0) g/dL Hct (38.0-50.0) % MCV (80.0-98.0) fL MCH (27.0-32.0) pg MCHC (31.0-37.0) g/dL RDW Std Deviation (28.0-62.0) fl RDW Coeff of Jaison (11.0-15.0) % Plt Count (150-400) K/uL MPV (7.40-12.00) fL Add Manual Diff Neutrophils % (Manual) (48.0-80.0) % Band Neutrophils % % Lymphocytes % (Manual) (16.0-40.0) % Monocytes % (Manual) (0.0-15.0) % Metamyelocytes % % Myelocytes % % Nucleated RBC % /100WBC Absolute Seg Neuts (1.4-5.7) Band Neutrophils # Lymphocytes # (Manual) (0.6-2.4) Monocytes # (Manual) (0.0-0.8) Absolute Metamyelocyte Absolute Myelocytes Nucleated RBCs # K/uL Sodium (136-148) mmol/L Potassium (3.5-5.1) mmol/L Chloride (98-107) mmol/L Carbon Dioxide (21.0-32.0) mmol/L BUN (7.0-18.0) mg/dL Creatinine (0.8-1.3) mg/dL Est Cr Clr Drug Dosing mL/min Estimated GFR (MDRD) ml/min Glucose (74-106) mg/dL POC Glucose 185 H 204 H 216 H (60-110) mg/dL Calcium (8.5-10.1) mg/dL Total Bilirubin (0.2-1.0) mg/dL AST (15-37) IU/L ALT (14-63) IU/L Alkaline Phosphatase (46-116) U/L Total Protein (6.4-8.2) g/dL Albumin (3.4-5.0) g/dL Globulin (2.6-4.0) g/dL Albumin/Globulin Ratio (0.9-1.6) 10/25/18 10/25/18 Range/Units 07:29 07:29 WBC 4.11 (4.0-11.0) K/uL RBC 4.55 (4.50-5.90) M/uL Hgb 14.0 (13.0-17.0) g/dL Hct 43.3 (38.0-50.0) % MCV 95.2 (80.0-98.0) fL MCH 30.8 (27.0-32.0) pg MCHC 32.3 (31.0-37.0) g/dL RDW Std Deviation 49.8 (28.0-62.0) fl RDW Coeff of Jaison 14 (11.0-15.0) % Plt Count 200 (150-400) K/uL MPV 10.40 (7.40-12.00) fL Add Manual Diff YES Neutrophils % (Manual) 51 (48.0-80.0) % Band Neutrophils % 11 % Lymphocytes % (Manual) 24 (16.0-40.0) % Monocytes % (Manual) 11 (0.0-15.0) % Metamyelocytes % 2 % Myelocytes % 1 % Nucleated RBC % 0.0 /100WBC Absolute Seg Neuts 2.1 (1.4-5.7) Band Neutrophils # 0.5 Lymphocytes # (Manual) 1.0 (0.6-2.4) Monocytes # (Manual) 0.5 (0.0-0.8) Absolute Metamyelocyte 0.1 Absolute Myelocytes 0 Nucleated RBCs # 0 K/uL Sodium 154 H (136-148) mmol/L Potassium 3.0 L (3.5-5.1) mmol/L Chloride 113 H (98-107) mmol/L Carbon Dioxide 21.2 (21.0-32.0) mmol/L BUN 82 H (7.0-18.0) mg/dL Creatinine 2.2 H (0.8-1.3) mg/dL Est Cr Clr Drug Dosing 25.42 mL/min Estimated GFR (MDRD) 28.5 ml/min Glucose 224 H (74-106) mg/dL POC Glucose (60-110) mg/dL Calcium 9.1 (8.5-10.1) mg/dL Total Bilirubin 1.1 H (0.2-1.0) mg/dL AST 201 H (15-37) IU/L ALT 179 H (14-63) IU/L Alkaline Phosphatase 67 (46-116) U/L Total Protein 6.6 (6.4-8.2) g/dL Albumin 3.0 L (3.4-5.0) g/dL Globulin 3.6 (2.6-4.0) g/dL Albumin/Globulin Ratio 0.8 L (0.9-1.6) Manuel Results Last 24 Hours: Microbiology 10/22/18 15:15 Aerobic Blood Culture - Final Blood - Venous Staphylococcus Epidermidis Anaerobic Blood Culture - Preliminary NO GROWTH AFTER 2 DAYS 10/23/18 22:33 Aerobic Blood Culture - Preliminary Blood - Venous - Lab Draw NO GROWTH AFTER 1 DAY Anaerobic Blood Culture - Final 10/23/18 16:05 Aerobic Blood Culture - Preliminary Blood - Venous NO GROWTH AFTER 1 DAY Anaerobic Blood Culture - Final 10/22/18 15:25 Aerobic Blood Culture - Preliminary Blood - Venous - Lab Draw NO GROWTH AFTER 2 DAYS Anaerobic Blood Culture - Preliminary NO GROWTH AFTER 2 DAYS Med Orders - Current: Current Medications Acetaminophen (Tylenol) 650 mg RECTAL Q6H PRN PRN Reason: Fever Atropine Sulfate (Atropine 1% Ophth Soln) 0 ml SL Q1H PRN PRN Reason: Other Glycerin (Sani-Supp Pediatric) 1.5 gm RECTAL DAILY PRN PRN Reason: Constipation Lorazepam (Ativan) 1 mg IVPUSH Q6H PRN PRN Reason: Anxiety Morphine Sulfate (Morphine) 2 mg IVPUSH Q2H PRN PRN Reason: SOB/pain Last Admin: 10/25/18 01:00 Dose: 2 mg Ondansetron HCl (Zofran) 4 mg IVPUSH Q4H PRN PRN Reason: Nausea Discontinued Medications Albuterol/Ipratropium (Duoneb 3.0-0.5 Mg/3 Ml) 3 ml NEB ONETIME ONE Stop: 10/22/18 14:21 Last Admin: 10/22/18 14:35 Dose: 3 ml Albuterol/Ipratropium (Duoneb 3.0-0.5 Mg/3 Ml) 3 ml NEB Q4HRRT PRN PRN Reason: Wheezing Last Admin: 10/24/18 23:14 Dose: 3 ml Aspirin (Aspirin) 325 mg PO DAILY [facility] Last Admin: 10/25/18 08:33 Dose: Not Given Atropine Sulfate (Atropine 1% Oph Soln) 0 ml SL Q8H [facility] Donepezil HCl (Aricept) 10 mg PO BEDTIME [facility] Last Admin: 10/24/18 20:32 Dose: Not Given Furosemide (Lasix) 20 mg IVPUSH NOW ONE Stop: 10/22/18 17:54 Last Admin: 10/22/18 18:09 Dose: 20 mg Furosemide (Lasix) 40 mg IVPUSH NOW ONE Stop: 10/23/18 19:50 Last Admin: 10/23/18 20:25 Dose: 40 mg Furosemide (Lasix) 20 mg IVPUSH ONETIME ONE Stop: 10/23/18 20:31 Last Admin: 10/23/18 20:30 Dose: 20 mg Furosemide (Lasix) 20 mg IVPUSH ONETIME ONE Stop: 10/23/18 22:31 Last Admin: 10/23/18 22:38 Dose: 20 mg Furosemide (Lasix) Confirm Administered Dose 20 mg .ROUTE .STK-MED ONE Stop: 10/23/18 22:36 Last Admin: 10/23/18 22:41 Dose: 20 mg Heparin Sodium (Porcine) (Heparin Sodium) 5,000 units SUBCUT Q12H [facility] Last Admin: 10/25/18 03:29 Dose: 5,000 units Levofloxacin/Dextrose 750 mg/ (Premix) 150 mls @ 100 mls/hr IV Q24H [facility] Last Admin: 10/23/18 16:47 Dose: 100 mls/hr Potassium Chloride/Sodium Chloride (Normal Saline With 40 Meq Kcl) 1,000 mls @ 125 mls/hr IV ASDIRECTED [facility] Stop: 10/22/18 22:59 Potassium Chloride 20 meq/ (Premix) 50 mls @ 25 mls/hr IV ONETIME ONE Stop: 10/22/18 19:53 Last Admin: 10/22/18 21:05 Dose: 25 mls/hr Pantoprazole Sodium 40 mg/ (Sodium Chloride) 100 mls @ 10 mls/hr IVPUSH Q24H [facility] Last Admin: 10/22/18 20:19 Dose: 10 mls/hr Vancomycin HCl 2 gm/ Sodium (Chloride) 500 mls @ 250 mls/hr IV Q18H [facility] Last Admin: 10/23/18 18:11 Dose: 250 mls/hr Levofloxacin/Dextrose 750 mg/ (Premix) 150 mls @ 100 mls/hr IV Q48H [facility] Vancomycin HCl 1.25 gm/ Sodium (Chloride) 500 mls @ 333.333 mls/hr IV Q24H [facility] Last Admin: 10/24/18 18:14 Dose: 166 mls/hr Potassium Chloride 40 meq/ (Dextrose/Water) 1,020 mls @ 50 mls/hr IV ASDIRECTED [facility] Stop: 10/26/18 04:59 Last Admin: 10/25/18 09:38 Dose: 50 mls/hr Insulin Aspart (Novolog) 0 unit SUBCUT TIDAC [facility]; Protocol Last Admin: 10/25/18 07:28 Dose: 2 unit Levothyroxine Sodium 75 mcg/ (Levothyroxine Sodium 100 mcg) 175 mcg PO ACBREAKFAST [facility] Last Admin: 10/25/18 08:33 Dose: Not Given Lorazepam (Ativan) 0.5 mg IM ONETIME ONE Stop: 10/22/18 11:53 Last Admin: 10/22/18 11:59 Dose: 0.5 mg Lorazepam (Ativan) 1 mg IVPUSH ONETIME ONE Stop: 10/22/18 17:56 Last Admin: 10/22/18 18:09 Dose: 1 mg Lorazepam (Ativan) 0.5 mg IVPUSH Q6H PRN PRN Reason: Anxiety Last Admin: 10/24/18 08:54 Dose: 0.5 mg Memantine (Namenda) 5 mg PO BID [facility] Last Admin: 10/25/18 08:34 Dose: Not Given Methylprednisolone Sodium Succinate (Solu-Medrol) 40 mg IVPUSH BID [facility] Last Admin: 10/25/18 08:43 Dose: 40 mg Metoprolol Tartrate (Lopressor) 5 mg IVPUSH ONETIME ONE Stop: 10/23/18 20:30 Last Admin: 10/23/18 20:30 Dose: 5 mg Non-Formulary Medication (Levothyroxine Sodium) 175 mcg PO DAILY [facility] Last Admin: 10/23/18 08:49 Dose: Not Given Non-Formulary Medication (Pantoprazole Sodium [Protonix]) 20 mg PO ASDIRECTED [facility] Pantoprazole Sodium (Protonix Iv) Confirm Administered Dose 40 mg .ROUTE .STK -MED ONE Stop: 10/22/18 20:16 Last Admin: 10/22/18 20:19 Dose: Not Given Pantoprazole Sodium (Protonix Iv) 40 mg IVPUSH Q24H [facility] Last Admin: 10/24/18 18:21 Dose: 40 mg Potassium Chloride (Klor-Con M20) 40 meq PO ONETIME ONE Stop: 10/22/18 14:58 Last Admin: 10/22/18 20:09 Dose: Not Given Prednisone (Prednisone) 80 mg PO DAILY@14 [facility] Vancomycin HCl (Pharmacy To Dose - Vancomycin) 1 dose .XX ASDIRECTED [facility] - Exam General: Lethargic Lungs: Other (crackles with rhonchi in right lower lung field.) Cardiovascular: Regular Rate, Regular Rhythm GI/Abdominal Exam: Soft, Non-Tender, No Distention Extremities: No Pedal Edema Skin: Warm, Moist - Problem List Review Problem List Initiated/Reviewed/Updated: Yes - My Orders Last 24 Hours: My Active Orders 10/24/18 17:15 Glycerin [Sani-Supp Pediatric] 1.5 gm RECTAL DAILY PRN 10/24/18 Dinner Mechanical Soft Diet [DIET] 10/25/18 11:21 Comfort Measures [OM.PC] Routine 10/25/18 11:30 Transfer Patient (Change bed) [ADT] Routine LORazepam [Ativan] 1 mg IVPUSH Q6H PRN 10/25/18 11:35 Atropine 1% [Atropine 1% Oph Soln] See Dose Instructions SL Q1H PRN 10/25/18 11:37 Communication Order [RC] ROUTINE - Plan Plan:: A: 1. Sepsis 2/2 HCAP and gram positive bacteremia 2. Acute hypoxic respiratory failure due to above 3. Acute kidney injury 4. Metabolic encephalopathy due to above and underlying dementia 5. Elevated troponin, stable 6. Hypernatremia 7. Hypokalemia P: Medical team met with family and patient's POA. They were informed about the patient's medical status and poor prognosis. Family and POA have decided to transition the patient to comfort care. Will discontinue IV fluids, antibiotics and other PO medications. Vitals can be done daily and per family request. Will plan to transfer patient to [facility] tomorrow on hospice.
[2018-10-25] MEDS: LORazepam 2 MG/ML SDV IVPUSH PRN ×3 (14:11→21:29)
[2018-10-25] MEDS ORDERED: Levofloxacin/Dextrose 5%-Water 750 MG in Premix Bag 1 BAG IV SCH (15:00)
[2018-10-26] MEDS: LORazepam 2 MG/ML SDV IVPUSH PRN (07:38)
--- NOTE | 2018-10-26 10:52 | PCM.DCSUM1 ---
<Paul Toussaint - Last Filed: 10/26/18 12:27> Discharge Summary - Hospital Course Free Text/Narrative:: Joselito Gonzalez is an 88 y/o male with history of dementia, COPD who presented to the ER after he was found on the floor and hypoxic at [facility]. CT head was negative for any intracranial bleed. Chest xray showed right lung basal infiltrate and his troponin was elevated. He was admitted for sepsis secondary to pneumonia. However, through out the hospitalization, the patients medical condition worsen. He was found to be aspirating and needing 10 L O2 NC to maintain O2 sats above 90%. He was found to have an elevated troponin level on admission. In addition, he was started on additional antibiotics for suspected bacteremia since one blood culture vial was positive. The patient's status on admission was DNR/DNI. The family was updated daily and the decision was made to transition him to comfort care with hospice to [facility]. - Discharge Data Discharge Date: 10/26/18 Discharge Disposition: DC/Tfer to [facility] 03 Condition: Poor - Patient Summary/Data Consults: Consultations 10/24/18 09:54 Consult to Speech Language Pathology [ONLINE PUBLISHER Evaluation and Treatment] [CONS] Routine 10/26/18 09:07 Consult to Hospice [CONS] Routine - Patient Instructions Diet: Mechanical Soft (Comfort food.) - Discharge Plan *PRESCRIPTION DRUG MONITORING PROGRAM REVIEWED*: Not Applicable *COPY OF PRESCRIPTION DRUG MONITORING REPORT IN PATIENT [place]: Not Applicable Prescriptions/Med Rec: LORazepam [Ativan] 1 mg PO Q4H PRN #20 ml PRN Reason: Agitation predniSONE 80 mg PO DAILY #30 tab Home Medications: Home Meds LORazepam [Ativan] 1 mg PO Q4H PRN #20 ml 10/26/18 [Rx] predniSONE 80 mg PO DAILY #30 tab 10/26/18 [Rx] Patient Handouts: Hypoxia, Lorazepam tablets, Prednisone tablets Referrals: Fabrizio Weber MD [Physician] - (Dr. Weber will see him on next [place] rounds. ) - Discharge Summary/Plan Comment DC Time >30 min.: No - Patient Data Vitals - Most Recent: Last Vital Signs Temp 36.6 C 10/26/18 07:36 Pulse 116 H 10/26/18 07:36 Resp 20 10/26/18 07:36 BP 138/90 10/26/18 07:36 Pulse Ox 93 L 10/26/18 07:36 Weight - Most Recent: 74.571 kg I&O - Last 24 hours: Intake & Output 10/25/18 10/26/18 10/26/18 22:59 06:59 14:59 Intake Total 0 Output Total 450 Balance -450 ALLEN Results - Last 24 hrs: Microbiology 10/23/18 22:33 Aerobic Blood Culture - Preliminary Blood - Venous - Lab Draw NO GROWTH AFTER 2 DAYS Anaerobic Blood Culture - Final 10/23/18 16:05 Aerobic Blood Culture - Preliminary Blood - Venous NO GROWTH AFTER 2 DAYS Anaerobic Blood Culture - Final 10/22/18 15:25 Aerobic Blood Culture - Preliminary Blood - Venous - Lab Draw NO GROWTH AFTER 3 DAYS Anaerobic Blood Culture - Preliminary NO GROWTH AFTER 3 DAYS 10/22/18 15:15 Aerobic Blood Culture - Final Blood - Venous Staphylococcus Epidermidis Anaerobic Blood Culture - Preliminary NO GROWTH AFTER 3 DAYS Med Orders - Current: Current Medications Acetaminophen (Tylenol) 650 mg RECTAL Q6H PRN PRN Reason: Fever Atropine Sulfate (Atropine 1% [facility]) 0 ml SL Q1H PRN PRN Reason: Other Glycerin (Sani-Supp Pediatric) 1.5 gm RECTAL DAILY PRN PRN Reason: Constipation Lorazepam (Ativan) 1 mg IVPUSH Q4H PRN PRN Reason: Anxiety Last Admin: 10/26/18 07:38 Dose: 1 mg Morphine Sulfate (Morphine) 2 mg IVPUSH Q2H PRN PRN Reason: SOB/pain Last Admin: 10/25/18 01:00 Dose: 2 mg Ondansetron HCl (Zofran) 4 mg IVPUSH Q4H PRN PRN Reason: Nausea Discontinued Medications Albuterol/Ipratropium (Duoneb 3.0-0.5 Mg/3 Ml) 3 ml NEB ONETIME ONE Stop: 10/22/18 14:21 Last Admin: 10/22/18 14:35 Dose: 3 ml Albuterol/Ipratropium (Duoneb 3.0-0.5 Mg/3 Ml) 3 ml NEB Q4HRRT PRN PRN Reason: Wheezing Last Admin: 10/24/18 23:14 Dose: 3 ml Aspirin (Aspirin) 325 mg PO DAILY NUPUR Last Admin: 10/25/18 08:33 Dose: Not Given Atropine Sulfate (Atropine 1% Oph Soln) 0 ml SL Q8H [facility] Last Admin: 10/25/18 12:35 Dose: Not Given Donepezil HCl (Aricept) 10 mg PO BEDTIME [facility] Last Admin: 10/24/18 20:32 Dose: Not Given Furosemide (Lasix) 20 mg IVPUSH NOW ONE Stop: 10/22/18 17:54 Last Admin: 10/22/18 18:09 Dose: 20 mg Furosemide (Lasix) 40 mg IVPUSH NOW ONE Stop: 10/23/18 19:50 Last Admin: 10/23/18 20:25 Dose: 40 mg Furosemide (Lasix) 20 mg IVPUSH ONETIME ONE Stop: 10/23/18 20:31 Last Admin: 10/23/18 20:30 Dose: 20 mg Furosemide (Lasix) 20 mg IVPUSH ONETIME ONE Stop: 10/23/18 22:31 Last Admin: 10/23/18 22:38 Dose: 20 mg Furosemide (Lasix) Confirm Administered Dose 20 mg .ROUTE .STK-MED ONE Stop: 10/23/18 22:36 Last Admin: 10/23/18 22:41 Dose: 20 mg Heparin Sodium (Porcine) (Heparin Sodium) 5,000 units SUBCUT Q12H [facility] Last Admin: 10/25/18 03:29 Dose: 5,000 units Levofloxacin/Dextrose 750 mg/ (Premix) 150 mls @ 100 mls/hr IV Q24H [facility] Last Admin: 10/23/18 16:47 Dose: 100 mls/hr Potassium Chloride/Sodium Chloride (Normal Saline With 40 Meq Kcl) 1,000 mls @ 125 mls/hr IV ASDIRECTED [facility] Stop: 10/22/18 22:59 Potassium Chloride 20 meq/ (Premix) 50 mls @ 25 mls/hr IV ONETIME ONE Stop: 10/22/18 19:53 Last Admin: 10/22/18 21:05 Dose: 25 mls/hr Pantoprazole Sodium 40 mg/ (Sodium Chloride) 100 mls @ 10 mls/hr IVPUSH Q24H [facility] Last Admin: 10/22/18 20:19 Dose: 10 mls/hr Vancomycin HCl 2 gm/ Sodium (Chloride) 500 mls @ 250 mls/hr IV Q18H [facility] Last Admin: 10/23/18 18:11 Dose: 250 mls/hr Levofloxacin/Dextrose 750 mg/ (Premix) 150 mls @ 100 mls/hr IV Q48H [facility] Vancomycin HCl 1.25 gm/ Sodium (Chloride) 500 mls @ 333.333 mls/hr IV Q24H [facility] Last Admin: 10/24/18 18:14 Dose: 166 mls/hr Potassium Chloride 40 meq/ (Dextrose/Water) 1,020 mls @ 50 mls/hr IV ASDIRECTED [facility] Stop: 10/26/18 04:59 Last Admin: 10/25/18 09:38 Dose: 50 mls/hr Insulin Aspart (Novolog) 0 unit SUBCUT TIDAC [facility]; Protocol Last Admin: 10/25/18 07:28 Dose: 2 unit Levothyroxine Sodium 75 mcg/ (Levothyroxine Sodium 100 mcg) 175 mcg PO ACBREAKFAST [facility] Last Admin: 10/25/18 08:33 Dose: Not Given Lorazepam (Ativan) 0.5 mg IM ONETIME ONE Stop: 10/22/18 11:53 Last Admin: 10/22/18 11:59 Dose: 0.5 mg Lorazepam (Ativan) 1 mg IVPUSH ONETIME ONE Stop: 10/22/18 17:56 Last Admin: 10/22/18 18:09 Dose: 1 mg Lorazepam (Ativan) 0.5 mg IVPUSH Q6H PRN PRN Reason: Anxiety Last Admin: 10/24/18 08:54 Dose: 0.5 mg Lorazepam (Ativan) 1 mg IVPUSH Q6H PRN PRN Reason: Anxiety Last Admin: 10/25/18 17:50 Dose: 1 mg Memantine (Namenda) 5 mg PO BID [facility] Last Admin: 10/25/18 08:34 Dose: Not Given Methylprednisolone Sodium Succinate (Solu-Medrol) 40 mg IVPUSH BID [facility] Last Admin: 10/25/18 08:43 Dose: 40 mg Metoprolol Tartrate (Lopressor) 5 mg IVPUSH ONETIME ONE Stop: 10/23/18 20:30 Last Admin: 10/23/18 20:30 Dose: 5 mg Non-Formulary Medication (Levothyroxine Sodium) 175 mcg PO DAILY [facility] Last Admin: 10/23/18 08:49 Dose: Not Given Non-Formulary Medication (Pantoprazole Sodium [Protonix]) 20 mg PO ASDIRECTED [facility] Pantoprazole Sodium (Protonix Iv) Confirm Administered Dose 40 mg .ROUTE .STK -MED ONE Stop: 10/22/18 20:16 Last Admin: 10/22/18 20:19 Dose: Not Given Pantoprazole Sodium (Protonix Iv) 40 mg IVPUSH Q24H [facility] Last Admin: 10/24/18 18:21 Dose: 40 mg Potassium Chloride (Klor-Con M20) 40 meq PO ONETIME ONE Stop: 10/22/18 14:58 Last Admin: 10/22/18 20:09 Dose: Not Given Prednisone (Prednisone) 80 mg PO DAILY@14 [facility] Vancomycin HCl (Pharmacy To Dose - Vancomycin) 1 dose .XX ASDIRECTED [facility] <Ford Kelsey - Last Filed: 10/28/18 19:25> Discharge Summary - Patient Summary/Data Consults: Consultations 10/24/18 09:54 Consult to Speech Language Pathology [ONLINE PUBLISHER Evaluation and Treatment] [CONS] Routine 10/26/18 09:07 Consult to Hospice [CONS] Routine - Patient Data Vitals - Most Recent: Last Vital Signs Temp 35.7 C 10/26/18 11:50 Pulse 97 10/26/18 11:50 Resp 22 H 10/26/18 11:50 BP 112/83 10/26/18 11:50 Pulse Ox 95 10/26/18 11:50 ALLEN Results - Last 24 hrs: Microbiology 10/23/18 16:05 Aerobic Blood Culture - Final Blood - Venous NO GROWTH AFTER 5 DAYS Anaerobic Blood Culture - Final 10/23/18 22:33 Aerobic Blood Culture - Preliminary Blood - Venous - Lab Draw NO GROWTH AFTER 4 DAYS Anaerobic Blood Culture - Final 10/22/18 15:25 Aerobic Blood Culture - Final Blood - Venous - Lab Draw NO GROWTH AFTER 5 DAYS Anaerobic Blood Culture - Final NO GROWTH AFTER 5 DAYS 10/22/18 15:15 Aerobic Blood Culture - Final Blood - Venous Staphylococcus Epidermidis Anaerobic Blood Culture - Final NO GROWTH AFTER 5 DAYS Med Orders - Current: Current Medications Discontinued Medications Acetaminophen (Tylenol) 650 mg RECTAL Q6H PRN PRN Reason: Fever Albuterol/Ipratropium (Duoneb 3.0-0.5 Mg/3 Ml) 3 ml NEB ONETIME ONE Stop: 10/22/18 14:21 Last Admin: 10/22/18 14:35 Dose: 3 ml Albuterol/Ipratropium (Duoneb 3.0-0.5 Mg/3 Ml) 3 ml NEB Q4HRRT PRN PRN Reason: Wheezing Last Admin: 10/24/18 23:14 Dose: 3 ml Aspirin (Aspirin) 325 mg PO DAILY NUPUR Last Admin: 10/25/18 08:33 Dose: Not Given Atropine Sulfate (Atropine 1% Ophth Soln) 0 ml SL Q8H NUPUR Last Admin: 10/25/18 12:35 Dose: Not Given Atropine Sulfate (Atropine 1% Ophth Soln) 0 ml SL Q1H PRN PRN Reason: Other Donepezil HCl (Aricept) 10 mg PO BEDTIME [facility] Last Admin: 10/24/18 20:32 Dose: Not Given Furosemide (Lasix) 20 mg IVPUSH NOW ONE Stop: 10/22/18 17:54 Last Admin: 10/22/18 18:09 Dose: 20 mg Furosemide (Lasix) 40 mg IVPUSH NOW ONE Stop: 10/23/18 19:50 Last Admin: 10/23/18 20:25 Dose: 40 mg Furosemide (Lasix) 20 mg IVPUSH ONETIME ONE Stop: 10/23/18 20:31 Last Admin: 10/23/18 20:30 Dose: 20 mg Furosemide (Lasix) 20 mg IVPUSH ONETIME ONE Stop: 10/23/18 22:31 Last Admin: 10/23/18 22:38 Dose: 20 mg Furosemide (Lasix) Confirm Administered Dose 20 mg .ROUTE .STK-MED ONE Stop: 10/23/18 22:36 Last Admin: 10/23/18 22:41 Dose: 20 mg Glycerin (Sani-Supp Pediatric) 1.5 gm RECTAL DAILY PRN PRN Reason: Constipation Heparin Sodium (Porcine) (Heparin Sodium) 5,000 units SUBCUT Q12H [facility] Last Admin: 10/25/18 03:29 Dose: 5,000 units Levofloxacin/Dextrose 750 mg/ (Premix) 150 mls @ 100 mls/hr IV Q24H [facility] Last Admin: 10/23/18 16:47 Dose: 100 mls/hr Potassium Chloride/Sodium Chloride (Normal Saline With 40 Meq Kcl) 1,000 mls @ 125 mls/hr IV ASDIRECTED [facility] Stop: 10/22/18 22:59 Potassium Chloride 20 meq/ (Premix) 50 mls @ 25 mls/hr IV ONETIME ONE Stop: 10/22/18 19:53 Last Admin: 10/22/18 21:05 Dose: 25 mls/hr Pantoprazole Sodium 40 mg/ (Sodium Chloride) 100 mls @ 10 mls/hr IVPUSH Q24H [facility] Last Admin: 10/22/18 20:19 Dose: 10 mls/hr Vancomycin HCl 2 gm/ Sodium (Chloride) 500 mls @ 250 mls/hr IV Q18H [facility] Last Admin: 10/23/18 18:11 Dose: 250 mls/hr Levofloxacin/Dextrose 750 mg/ (Premix) 150 mls @ 100 mls/hr IV Q48H [facility] Vancomycin HCl 1.25 gm/ Sodium (Chloride) 500 mls @ 333.333 mls/hr IV Q24H [facility] Last Admin: 10/24/18 18:14 Dose: 166 mls/hr Potassium Chloride 40 meq/ (Dextrose/Water) 1,020 mls @ 50 mls/hr IV ASDIRECTED [facility] Stop: 10/26/18 04:59 Last Admin: 10/25/18 09:38 Dose: 50 mls/hr Insulin Asp[facility] ([facility]) [facility] Protocol Last Admin: 10/25/18 07:28 Dose: 2 unit Levothyroxine Sodium 75 mcg/ (Levothyroxine Sodium 100 mcg) 175 mcg PO ACBREAKFAST [facility] Last Admin: 10/25/18 08:33 Dose: Not Given Lorazepam (Ativan) 0.5 mg IM ONETIME ONE Stop: 10/22/18 11:53 Last Admin: 10/22/18 11:59 Dose: 0.5 mg Lorazepam (Ativan) 1 mg IVPUSH ONETIME ONE Stop: 10/22/18 17:56 Last Admin: 10/22/18 18:09 Dose: 1 mg Lorazepam (Ativan) 0.5 mg IVPUSH Q6H PRN PRN Reason: Anxiety Last Admin: 10/24/18 08:54 Dose: 0.5 mg Lorazepam (Ativan) 1 mg IVPUSH Q6H PRN PRN Reason: Anxiety Last Admin: 10/25/18 17:50 Dose: 1 mg Lorazepam (Ativan) 1 mg IVPUSH Q4H PRN PRN Reason: Anxiety Last Admin: 10/26/18 07:38 Dose: 1 mg Memantine (Namenda) 5 mg PO BID [facility] Last Admin: 10/25/18 08:34 Dose: Not Given Methylprednisolone Sodium Succinate (Solu-Medrol) 40 mg IVPUSH BID [facility] Last Admin: 10/25/18 08:43 Dose: 40 mg Metoprolol Tartrate (Lopressor) 5 mg IVPUSH ONETIME ONE Stop: 10/23/18 20:30 Last Admin: 10/23/18 20:30 Dose: 5 mg Morphine Sulfate (Morphine) 2 mg IVPUSH Q2H PRN PRN Reason: SOB/pain Last Admin: 10/26/18 10:56 Dose: 2 mg Non-Formulary Medication (Levothyroxine Sodium) 175 mcg PO DAILY [facility] Last Admin: 10/23/18 08:49 Dose: Not Given Non-Formulary Medication (Pantoprazole Sodium [Protonix]) 20 mg PO ASDIRECTED [facility] Ondansetron HCl (Zofran) 4 mg IVPUSH Q4H PRN PRN Reason: Nausea Pantoprazole Sodium (Protonix Iv) Confirm Administered Dose 40 mg .ROUTE .STK -MED ONE Stop: 10/22/18 20:16 Last Admin: 10/22/18 20:19 Dose: Not Given Pantoprazole Sodium (Protonix Iv) 40 mg IVPUSH Q24H [facility] Last Admin: 10/24/18 18:21 Dose: 40 mg Potassium Chloride (Klor-Con M20) 40 meq PO ONETIME ONE Stop: 10/22/18 14:58 Last Admin: 10/22/18 20:09 Dose: Not Given Prednisone (Prednisone) 80 mg PO DAILY@14 [facility] Vancomycin HCl (Pharmacy To Dose - Vancomycin) 1 dose .XX ASDIRECTED [facility] - Free Text/Narrative Note: I have examined the patient. I have discussed findings and treatment plan with the resident. I agree with the assessment and plan outlined in the following resident's note.
[2018-10-26] MEDS: Morphine 2 MG/ML Syringe IVPUSH PRN (10:56)
[2018-10-26 12:34] VITALS: BP 112/83
== END 2018-10-26 15:30 | DRG 871 ==
LOC: MW.ED 11:43 → MW.ICU 15:10 → MW.MS 10-25 18:52
PROVIDERS: ADMIT Internal Medicine; ATTEND Internal Medicine
DX: A41.89 Other specified sepsis (principal); J96.01 Acute respiratory failure with hypoxia; G93.41 Metabolic encephalopathy; J18.9 Pneumonia, unspecified organism; N17.9 Acute kidney failure, unspecified; E87.0 Hyperosmolality and hypernatremia; F05 Delirium due to known physiological condition; Z51.5 Encounter for palliative care; Z66 Do not resuscitate; J44.9 Chronic obstructive pulmonary disease, unspecified; R09.02 Hypoxemia; R50.9 Fever, unspecified; Z79.82 Long term (current) use of aspirin; R74.8 Abnormal levels of other serum enzymes; M19.91 Primary osteoarthritis, unspecified site; Z88.7 Allergy status to serum and vaccine; Z79.899 Other long term (current) drug therapy; Z79.84 Long term (current) use of oral hypoglycemic drugs; Z79.890 Hormone replacement therapy; Z79.52 Long term (current) use of systemic steroids; W18.30XA Fall on same level, unspecified, initial encounter; E87.6 Hypokalemia; H91.90 Unspecified hearing loss, unspecified ear; Z88.8 Allergy status to other drugs, medicaments and biological substances; H35.30 Unspecified macular degeneration; Z98.49 Cataract extraction status, unspecified eye; Z79.4 Long term (current) use of insulin; I10 Essential (primary) hypertension; J43.9 Emphysema, unspecified; K59.09 Other constipation; M19.90 Unspecified osteoarthritis, unspecified site; G30.9 Alzheimer's disease, unspecified; F02.80 Dementia in other diseases classified elsewhere, unspecified severity, without behavioral disturbance, psychotic disturbance, mood disturbance, and anxiety; F32.9 Major depressive disorder, single episode, unspecified; E11.9 Type 2 diabetes mellitus without complications; E03.9 Hypothyroidism, unspecified; D64.9 Anemia, unspecified
CPT/HCPCS: 36415; 36600; 51702; 70450; 70450-26; 71045; 71045-26; 71046; 71046-26; 72125; 72125-26; 72170; 72170-26; 80048; 80053; 81001; 82803; 82962; 83735; 83880; 84484; 85025; 85610; 87040; 87077; 87186; 92610-GN; 93005; 94640; 94660; 96372; 99285-25; A4217; A9270-GY; C9113; J1644; J1815-GY; J1940; J1956; J2060; J2270; J2920; J3370; J3480; J3490; J7030; J7040; J7060; J7620-GY